=== PATIENT | male | born 1955 | race Caucasian/White ===

== ENCOUNTER 2020-09-24 12:03 | Outpatient (CLI) | payer BC, MEDICARE, SELFPAY ==
--- NOTE | ~2020-09-24 | XR_ITS ---
EXAMINATION: XR chest 2V EXAM DATE: 09/24/2020 12:31 INDICATION: Chest pressure. TECHNIQUE: Frontal and lateral projections of the chest obtained and reviewed. There is no prior melanie dy for comparison. FINDINGS: The lungs are clear. There are no pleural effusions. The cardiomediastinal silhouette is within normal limits. There is no pneumothorax suspected. The bones and soft tissues are unremarkab le. IMPRESSION: No acute cardiopulmonary findings. Reviewed, dictated and finalized at location B. OGRAPHIC PRESS SCREWMAKER
[2020-09-24 13:42] LABS: Basophils Percent Auto 0.4 % (0.2-1.2); Eosinophils Absolute Auto 0.2 K/mm3 (0-0.3); Eosinophils Percent Auto 2.4 % (0-4.4); Hematocrit 45.4 % (42.0-52.0); Hemoglobin 15.2 g/dL (14.0-18.0); Immature Granulocyte Absolute 0.03 K/mm3 (0.00-0.031); Immature Granulocyte Percent A 0.4 % (0-0.5); Lymphocytes Absolute Auto 2.14 K/mm3 (0.9-3.2); Lymphocytes Percent Auto 28.2 % (18.3-44.2); Mean Corpuscular HGB Conc 33.5 g/dl (32-36); Mean Corpuscular Hemoglobin 29.6 pg (26-34); Mean Corpuscular Volume 88.5 fl (80-100); Mean Platelet Volume 9.8 fl (7.4-10.4); Monocytes Absolute Auto 0.6 K/mm3 (0.1-0.6); Monocytes Percent Auto 7.9 % (2.6-8.5); Neutrophils Absolute Auto 4.6 K/mm3 (1.3-6.7); Neutrophils Percent Auto 60.7 % (45.5-73.1); Platelet Count Result 228 k/mm3 (150-375); Red Blood Count 5.13 M/mm3 (4.6-6.20); Red Cell Distribution Width 13.2 % (11.5-14.5); White Blood Count 7.6 K/mm3 (4.5-10.0)
[2020-09-24 13:58] LABS: Alanine Aminotransferase 34 U/L (4-50); Albumin Level 4.7 g/dL (3.5-5.1); Alkaline Phosphatase 65 U/L (38-126); Anion Gap 10 mmol/L (8-16); Aspartate Amino Transferase 34 U/L (17-59); Bilirubin,Total 0.8 mg/dL (0.2-1.3); Blood Urea Nitrogen 10 mg/dL (9-20); Calcium 9.5 mg/dL (8.4-10.2); Carbon Dioxide 29 mmol/L (22-30); Chloride 101 mmol/L (98-107); Estimated Glomerular Filt Rate > 60; Glucose 132 mg/dL (75-110); Potassium 4.2 mmol/L (3.4-5.0); Sodium 140 mmol/L (137-145)
[2020-09-24 14:09] LABS: Troponin I < 0.012 ng/mL (0.000-0.034)
== END 2020-09-24 12:04 | disposition home or self-care (01) ==
LOC: ANHIMG 12:13
PROVIDERS: PCP Internal Medicine; Visit Provider Internal Medicine
DX: R07.89 Other chest pain (principal)
CPT/HCPCS: 36415; 71046; 80053; 84484; 85025; 85380

== ENCOUNTER 2020-10-04 08:13 | Outpatient (CLI) | payer BC, MEDICARE, SELFPAY ==
--- NOTE | 2020-10-04 | EST_ITS ---
Patient Info Name: Bob Godoy Age: 64 years : 1955 Gender: Male Ht: 70 in Wt: 320 lbs BSA: 2.75 m2 Exam Date: 10/04/2020 9:30 AM Exam Location: [facility] Stress Patient Status: Outpatient Admit Date: 10/04/2020 Staff Ordering Physician: WinDolly MD Attending Provider: WinDolly MD Exercise Technologist: Thuy Castillo RDCS Exercise Physician: Chay Varghese DO Exam Type: CA stress aneta w NM Study Info Indications R06.02 - Shortness of breath R07.89 - Other chest pain A regadenoson stress test was performed. Summary 1. 1. Negative lexiscan stress test for ischemic ST changes by ECG criteria. 2. 2. Stable hemodynamics throughout the test. 3. 3. Nuclear scan to follow and will be reported separately. Please correlate with it. 4. 4. Patient informed of the above results. Protocol: Lexiscan Stress ECG Details Stage: REST Duration (min): 7 min : 4 sec HR (bpm): 77 SBP (mmHg): 114 DBP (mmHg): 72 Stage: REST Duration (min): 11 min : 3 sec HR (bpm): 76 SBP (mmHg): 114 DBP (mmHg): 72 Stage: STAGE 1 Duration (min): 1 min : 0 sec HR (bpm): 91 SBP (mmHg): 115 DBP (mmHg): 71 Stage: RECOVERY Duration (min): 1 min : 0 sec HR (bpm): 94 SBP (mmHg): 110 DBP (mmHg): 68 Stage: RECOVERY Duration (min): 2 min : 0 sec HR (bpm): 90 SBP (mmHg): 110 DBP (mmHg): 68 Stage: RECOVERY Duration (min): 3 min : 0 sec HR (bpm): 89 SBP (mmHg): 113 DBP (mmHg): 65 Stage: RECOVERY Duration (min): 3 min : 11 sec HR (bpm): 89 SBP (mmHg): 113 DBP (mmHg): 65 Rest HR: 76 bpm Peak HR: 98 bpm Rest Sys BP: 114 mmHg Peak Sys BP: 115 mmHg Max Pred HR: 158 bpm % Max Pred HR: 62 % Target HR: 134 bpm Max RPP: 11,270 bpm*mmHg Termination Reason: Completed protocol Cardiac Symptoms: Shortness of breath Total Time: 1 min : 0 sec Rest Wang BP: 72 mmHg Peak Wang BP: 71 mmHg Total Dose: 0.4 mg Resting ECG Sinus rhythm. Stress ECG No ST changes. Arrhythmias None. Report Signatures
--- NOTE | ~2020-10-04 | NM_ITS ---
EXAMINATION: NM aneta stress w perfusion DATE: 10/04/2020 11:03 INDICATION: Chest pressure. TECHNIQUE: Rest images were obtained following intravenous administration of 9.6 mCi Tc99m tetrofosmi n (Myoview). The patient was infused intravenously with Lexiscan (regadenoson). Then, 30 mCi Tc99m te trofosmin (Myoview) was administered intravenously, and stress images were obtained. Data was reconst ructed into short axis and horizontal and vertical long axis SPECT images. Gated SPECT images were al so obtained. COMPARISON: None. FINDINGS: There is no definite reversible or fixed perfusion abnormality to suggest ischemia or infar ction. There is no segmental wall motion abnormality. Left ventricular ejection fraction measures 6 8%. IMPRESSION: 1. No definite ischemia or infarct. 2. Normal left ventricular ejection fraction measuring 68%. Reviewed, dictated and finalized at location B. ICAL LABORATORY ASSISTANT
== END 2020-10-04 08:14 | disposition home or self-care (01) ==
LOC: ANHCARD 08:15
PROVIDERS: PCP Internal Medicine; Visit Provider Internal Medicine
DX: R07.89 Other chest pain (principal); E11.9 Type 2 diabetes mellitus without complications
CPT/HCPCS: 78452; 93017; A9502; J2785

== ENCOUNTER 2020-11-08 13:20 | Outpatient (CLI) | payer BC, MEDICARE, SELFPAY ==
--- NOTE | 2020-11-08 | ECHO_ITS ---
Patient Info Name: Bob Godoy Age: 64 years : 1955 Gender: Male Ht: 72 in Wt: 320 lbs BSA: 2.78 m2 HR: 82 bpm BP: 124 / 77 mmHg Heart Rhythm: Sinus Rhythm Technical Quality: Fair Exam Date: 11/08/2020 2:39 PM Exam Location: [facility] Patient Status: Outpatient Admit Date: 11/08/2020 Staff Ordering Physician: JustusDolly MD Picking Supervisor: Bronwyn Beverly RDCS Attending Provider: JustusDolly MD Referring Physician: Justus ISAAC; Exam Type: CA echo doppler color flow Study Info Indications R06.02 - Shortness of breath Complete two-dimensional, color flow and Doppler transthoracic echocardiogram is performed. Summary 1. Complete two-dimensional, color flow and Doppler transthoracic echocardiogram is performed. 2. Left ventricular systolic function is normal, estimated at >70%. 3. There is mildly increased left ventricular wall thickness. 4. The left ventricular diastolic function is grade I diastolic dysfunction. 5. Left atrial chamber dimension is mildly enlarged. 6. There is trace mitral valve regurgitation. 7. There is no aortic valve stenosis. 8. There is trace tricuspid valve regurgitation. 9. No pulmonary hypertension, estimated pulmonary arterial systolic pressure is 23 mmHg. 10. There is trivial pericardial effusion. 11. The pericardium appears epicardial fat pad. 12. Normal inferior vena cava with >50% collapse upon inspiration consistent with normal right atrial pressure, 5 mmHg. Left Ventricle Left ventricular chamber dimension is normal. Left ventricular systolic function is normal, estimated at >70%. There is mildly increased left ventricular wall thickness. The left ventricular diastolic function is grade I diastolic dysfunction. Right Ventricle Right ventricular chamber dimension is normal. Right ventricular systolic function is normal. Left Atria Left atrial chamber dimension is mildly enlarged. Right Atria Right atrial chamber dimension is normal. Aortic Valve The aortic valve is trileaflet. There is no aortic valve stenosis. There is no aortic valve regurgitation. Pulmonic Valve The pulmonic valve is not well visualized. There is trace pulmonic regurgitation. Mitral Valve The mitral valve has normal leaflets. There is trace mitral valve regurgitation. The mitral valve annulus is mildly calcified. Tricuspid Valve The tricuspid valve leaflets are normal. There is trace tricuspid valve regurgitation. No pulmonary hypertension, estimated pulmonary arterial systolic pressure is 23 mmHg. Pericardium/Pleural The pericardium appears epicardial fat pad. There is trivial pericardial effusion. Inferior Vena Cava Normal inferior vena cava with >50% collapse upon inspiration consistent with normal right atrial pressure, 5 mmHg. Aorta The aortic root size at the sinus of Valsalva is normal. There is mild aortic atherosclerosis. Left Ventricular Outflow Tract Name Value Normal LVOT 2D LVOT Diameter 2.2 cm LVOT Doppler LVOT Peak Gradient 4 mmHg LVOT Mean Gradient 2 mmHg
== END 2020-11-08 13:21 | disposition home or self-care (01) ==
PROVIDERS: PCP Internal Medicine; Visit Provider Internal Medicine
DX: R06.02 Shortness of breath (principal)
CPT/HCPCS: 93306

== ENCOUNTER 2020-11-19 07:46 | Outpatient (CLI) | payer BC, MEDICARE, SELFPAY ==
[2020-11-19 08:14] LABS: Alveolar/Arterial O2 Gradient 25.4 mmHg; Base Excess ABG -0.9 mEq/l (+/-2.0); Fractional Inspired Oxygen 21 %; HCO3 ABG 23.4 mEq/l (22.0-26.0); Modified Allen's Test Pass; Oxygen Content ABG 20.4 %vol (16.0-22.0); Oxygen Saturation ABG 95.9 % (95.0-100.0); Oxyhemoglobin 94.7 % THb (90.0-100.0); PCO2 ABG 37.7 mmHg (35.0-45.0); PO2 ABG 79.2 mmHg (80.0-100.0); PO2 FiO2 Ratio Arterial Blood 3.77 %; Site Drawn LEFT RADIAL; Total Hemoglobin 15.3 g/dL (12.0-18.0)
[2020-11-19 08:15] LABS: Device ROOM AIR
== END 2020-11-19 07:47 | disposition home or self-care (01) ==
PROVIDERS: PCP Internal Medicine; Visit Provider Internal Medicine
DX: R06.02 Shortness of breath (principal); G47.33 Obstructive sleep apnea (adult) (pediatric)
CPT/HCPCS: 36600; 82805

== ENCOUNTER 2021-04-02 07:06 | Outpatient (CLI) | payer BC, MEDICARE, SELFPAY ==
--- NOTE | ~2021-04-02 | CT_ITS ---
EXAMINATION: CT abdomen pelvis w con DATE: 04/02/2021 08:12 INDICATION: Left groin pain with lifting. TECHNIQUE: Computed tomography (CT) of the abdomen and pelvis was performed without intravenous contr ast. Automated exposure control and iterative reconstruction technique were employed. Exam dose: 176 1.09 mGy-cm total exam DLP. COMPARISON: None. FINDINGS: The lung bases are clear of infiltrate or consolidation. Heart size is normal. Coronary art jigna calcifications. No pericardial or pleural effusion. Status post cholecystectomy. The liver, bile ducts, spleen, pancreas and pancreatic duct appear normal. 1.7 cm right adrenal mass, likely an adrenal adenoma if there is no history of cancer. The left adrenal gland is normal. No renal mass lesion or urinary tract calculus or hydroureteronephrosis is detected. The urinary blad olivier, prostate gland and seminal vesicles are unremarkable. There is atherosclerotic calcification of the abdominal aorta but no aneurysm. No intraperitoneal or retroperitoneal or pelvic mass lesion or adenopathy or ascites is detected. 3 cm duodenal diverticulum Normal appendix. There is diverticulosis of the left colon; no CT evidence for diverticulitis. No inguinal hernia. No suspicious osteolytic or osteoblastic lesions. IMPRESSION: No fat-containing inguinal hernia 1.7 cm right adrenal probable adenoma Status post cholecystectomy Diverticulosis of the left colon; no CT evidence of diverticulitis Reviewed, dictated and finalized at Location A. Reviewed, dictated and finalized at location A.
[2021-04-02 09:14] LABS: Estimated Glomerular Filt Rate > 60
== END 2021-04-02 07:07 | disposition home or self-care (01) ==
PROVIDERS: PCP Internal Medicine; Visit Provider Internal Medicine
DX: R10.32 Left lower quadrant pain (principal); Z90.49 Acquired absence of other specified parts of digestive tract; K57.30 Diverticulosis of large intestine without perforation or abscess without bleeding
CPT/HCPCS: 74177; Q9967

== ENCOUNTER 2021-06-20 08:46 | Outpatient (CLI) | payer BC, MEDICARE, SELFPAY ==
[2021-06-20 09:48] LABS: Alanine Aminotransferase 46 U/L (4-50); Alkaline Phosphatase 74 U/L (38-126); Anion Gap 12 mmol/L (8-16); Aspartate Amino Transferase 42 U/L (17-59); Bilirubin,Total 0.7 mg/dL (0.2-1.3); Blood Urea Nitrogen 11 mg/dL (9-20); Calcium 9.4 mg/dL (8.4-10.2); Carbon Dioxide 26 mmol/L (22-30); Chloride 100 mmol/L (98-107); Cholesterol 129 mg/dL (0-200); Estimated Glomerular Filt Rate > 60; Glucose 209 mg/dL (65-110); HDL Direct 26 mg/dL; Potassium 4.5 mmol/L (3.4-5.0); Sodium 138 mmol/L (137-145); Triglycerides 362 mg/dL (<150)
[2021-06-20 09:59] LABS: LDL Cholesterol Direct 48 mg/dL
[2021-06-20 10:22] LABS: MALB Creatinine Ratio < 7.1 mg/g (0-30); Microalbumin Urine Random < 6.0 mg/L (0-16.7)
[2021-06-20 10:43] LABS: Hemoglobin A1C 8.7 % (<5.7)
[2021-06-24 11:56] LABS: DHEA-Sulfate 49 mcg/dL (24-244)
[2021-06-28 11:14] LABS: Renin 17.93 ng/mL/h (0.25-5.82)
== END 2021-06-20 08:47 | disposition home or self-care (01) ==
LOC: ANHLAB 08:54
PROVIDERS: PCP Internal Medicine; Visit Provider Internal Medicine
DX: E27.8 Other specified disorders of adrenal gland (principal); E11.9 Type 2 diabetes mellitus without complications; E78.5 Hyperlipidemia, unspecified
CPT/HCPCS: 36415; 80053; 80061; 82043; 82088; 82627; 83036; 84244

== ENCOUNTER 2021-06-26 08:34 | Outpatient (CLI) | payer BC, MEDICARE, SELFPAY ==
[2021-06-29 20:58] LABS: Metanephrine, Total Urine 171 mcg/24 h (224-832); Metanephrine, Urine 38 mcg/24 h (90-315); Normetanephrine, Urine 133 mcg/24 h (122-676)
[2021-07-01 16:48] LABS: Calculated Total (E+NE) 22 mcg/24 h (26-121); Dopamine, 24hr Urine 83 mcg/24 h (52-480); Norepinephrine, 24hr Urine 22 mcg/24 h (15-100)
[2021-07-02 21:31] LABS: Cortisol, Saliva 0.16 mcg/dL
[2021-07-04 15:52] LABS: Cortisol, Saliva 0.18 mcg/dL
== END 2021-06-26 08:35 | disposition home or self-care (01) ==
LOC: ANHLAB 08:39
PROVIDERS: PCP Internal Medicine; Visit Provider Internal Medicine
DX: E27.8 Other specified disorders of adrenal gland (principal); E11.9 Type 2 diabetes mellitus without complications; E78.5 Hyperlipidemia, unspecified
CPT/HCPCS: 82384; 82530; 83835

== ENCOUNTER 2021-08-19 10:20 | Outpatient (CLI) | payer BC, MEDICARE, SELFPAY | END 2021-08-19 10:21 | disposition home or self-care (01) | LOC: CHSIMG 10:25 | PROVIDERS: PCP Internal Medicine; Visit Provider Podiatrist | DX: M79.672 Pain in left foot (principal); M25.572 Pain in left ankle and joints of left foot; M25.472 Effusion, left ankle | CPT/HCPCS: 73610; 73630 ==

== ENCOUNTER 2024-11-02 00:33 | Day surgery (SDC) | payer MEDICARE, OTHER, SELFPAY ==
[2024-10-14 14:37] VITALS: BMI 40.6
--- OUTSIDE RECORDS SUMMARY | 2024-11-02 00:36 | XMS_ITS | Encounter Summary ---
Author Organization [facility] Healthcare Address [address] [place] [address] Care Team Providers Care Gathering Machine Feeder Name Role Phone Dolly Walden MD Primary Care Provider [phone] Cj Epstein MD Unavailable Kye Jerome DPM Unavailable [phone] Encounter Details Date Type Department Care Team (Late st Contact Info) Description 07/23/2022 Telephone [facility] [address] [place] [id number] Aixa Rivera, Social History Tobacco Use Types Packs/Day Years Used Date Smoking Tobacco: Never Smokeless Tobacco: Never Alcohol Use Standard Drinks/Week Comments Yes 0 (1 standard drink = 0.6 oz pur e alcohol) Once in a while AUDIT-C Answer Date Recorded Q1: How often do you have a drink containing alc ohol? 2-3 times a week 03/19/2022 Q2: How many drinks containi ng alcohol do you have on a typical day when you are drinking? 3 or 4 03/19/2022 Q3: How often do you have si x or more drinks on one occasion? 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 Gender Identity Not on file Sexual Orientation Not on file documented as of this encounter Plan of Treatment Not on file documented as of this encounter Visit Diagnoses Not on filedocumented in this encounter Care Teams Gathering Machine Feeder Relationship Specialty Start Date End Date Dolly Walden MD [address] [place] [address] PCP - General 11/04/18 Cj Epstein MD [address] [facility] [place] [address] Consulting Physician General Surgery 03/21/22 Kye Jerome DPM [address] [place] [address] Consulting Physician Orthopedic Surgery 12/05/22 documented as of this encounter
--- OUTSIDE RECORDS SUMMARY | 2024-11-02 00:37 | XMS_ITS | Clinical Summary ---
Author Organization [facility] Address [address] [facility] [place] [address] Care Team Providers Care Short Filler Bunch Machine Operator Name Role Phone Denzel Dalton MD Unavailable [phone] Lionel Faith MD Unavailable [phone] Dolly Walden MD Primary Care Provider [phone] Keisha Boone APRN-JOCKEY VALET Unavailable [phone] Source Comments [facility],non-owned Affiliates and Associated Physician Practices is amultiple site organization consisting of ambulatory clinics and hospital sitesin [place], [place], [place] and [place]. This disclosure is being madepursuant to the Care Everywhere program and may not contain all information available regarding this patient. Last updated 18.[facility] Allergies Active Allergy Reactions Criticality Noted Date Comments Bupropion Nausea and/or Vomiting Low 07/10/2021 Naltrexone Nausea and/or Vomiting Low 07/10/2021 Penicillins Rash Medium 01/31/2013 Medications * Be aware that medications may not be up to date on this document. Alwaysverify current medications with the patient. Medication Sig Dispensed Refills Start Date End Date Status Rosuvastatin Calcium (CRESTOR PO)Indications:Thoracic or lumbosacral neuritis or radiculitis, unspecified,Lumbosacral spondylosis without myelopathy,Spinal stenosis, lumbar region, without neurogenic claudication Take 25 mg by mouth once daily Active METFORMIN HCL POIndications:Thoracic or lumbosacral neuritis or radiculitis, unspecified,Lumbosacral spondylosis without myelopathy,Spinal stenosis, lumbar region, without neurogenic claudication Take 1,000 mg by mouth 2 times daily Active meloxicam (Mobic) 15 MG tablet Take 1 (one) tablet by mouth once daily Active alendronate (Fosamax) 70 MG tablet TAKE ONE TABLET BY MOUTH WEEKLY ON AN EMPTY STOMACH. REMAIN UPRIGHT FOR AT LEAST 30 MINUTS 11/17/2021 Active aspirin EC (Ecotrin) 81 MG tablet Take 1 (one) tablet by mouth once daily Active pantoprazole EC (Protonix) 40 MG tablet Take 1 (one) tablet by mouth once daily 12/16/2021 Active RIFAMPIN IV Not sure of dose given OD in his chest port Active empagliflozin (Jardiance) 10 MG tablet Take 1 (one) tablet by mouth once daily Active Cholecalciferol 25 MCG (1000 UT) Take 2 (two) tablets by mouth once daily Active vitamin E (Tocopheryl) 1000 UNIT capsule Take 1 (one) capsule by mouth once daily Active Active Problems Problem Noted Date Diagnosed Date Osteoarthrosis involving lower leg 01/31/2013 Overview (12/08/2015): 2015 IMO Updt Knee 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 Never 06/19/2022 Q2: How many drinks containi ng alcohol do you have on a typical day when you are drinking? Patient does not drink Q3: How often do you have si x or more drinks on one occasion? Never 06/19/2022 Sex and Gender Information Value Date Recorded Sex Assigned at Not on file Gender Identity Not on file Sexual Orientation Not on file Last Filed Vital Signs Vital Sign Reading Time Taken Comments Blood Pressure 141/78 04/22/2023 11:18 AM CDT Pulse 54 04/22/2023 11:18 AM CDT Temperature 36.1 C (97 F) 04/22/2023 11:18 AM CDT Respiratory Rate 16 04/22/2023 11:18 AM CDT Oxygen Saturation 97% 04/22/2023 11:18 AM CDT Inhaled Oxygen Concentration - - Weight 118.4 kg (261 lb) 04/22/2023 7:40 AM CDT Height 177.8 cm (5' 10 ) 04/22/2023 7:40 AM CDT Body Mass Index 37.45 04/22/2023 7:40 AM CDT Plan of Treatment Health Maintenance Due Date Last Done Comments COLOGUARD (AGES 45-75) - COL ON CA SCREENING 1955 COLON MONITORING 1955 COLONOSCOPY - COLON CA SCREENING 1957 CT COLONOGRAPHY - COLON CA SCREENING 1955 Colorectal Cancer Screening 1955 FIT - COLON CA SCREENING 1955 FLEX SIG - COLON CA SCREENING 1955 MEDICARE AWV 12 MONTHS 1955 HEPATITIS C SCREENING 12/08/1975 DTAP/TDAP/TD VACCINES (1 - Tdap) 1976 PNEUMOCOCCAL VACCINE 50+ (1 of 1 - PCV) 12/13/2007 ZOSTER VACCINE (1 of 2) 12/13/2007 Respiratory Syncytial Virus (RSV) Vaccine Pt: or over 60 yrs (1 - Risk 60-74 years 1-dose series) 2017 COVID-19 VACCINE (2 - 2023-2 5 season) 2024 10/24/2020 INFLUENZA VACCINE (#1) 2024 06/01/2020 DEPRESSION SCREENING 09/14/2024 HEPATITIS B VACCINE Aged Out No longe r eligible based on patient's age to complete this topic HIB VACCINE Aged Out No longer eligi ble based on patient's age to complete this topic HPV VACCINE Aged Out No longer eligi ble based on patient's age to complete this topic MENINGOCOCCAL (Group B) VACCINE Aged Out No longer eligible based on patient's age to complete this topic MENINGOCOCCAL VACCINE Aged Out No leonie [place] eligible based on patient's age to complete this topic Medical Devices Implanted Type Area Toddler Teacher Device Identifier Shelf Expiration Date Model / Serial / Lot Kit Bngf c Apr Inj Implanted:Qty: 1 on 06/19/2022 by Mitchell Salazar DPM at [facility] Left: Foot [employer] [id number] / / [id number] Graft Bone Canc 4-9.5mm 15cc Frzdr Chp Implanted:Qty: 1 on 06/19/2022 by Mitchell Salazar DPM at [facility] Left: Foot [employer] 12/10/2026 [id number] / / [id number] Pin Fx 1.1mm Ortholoc 3di Sm Temp Disp Implanted:Qty: 2 on 06/19/2022 by Mitchell Salazar DPM at [facility] Explanted:Qty: 1 on 02/25/2023 at [facility] Left: Foot [employer] [id number] / / Pro-Dense Injectable Calcium Sulfate, Calcium Phosphate Implanted:Qty: 1 on 02/25/2023 by Vadim Salazar DPM at [facility] Left: Foot [employer] 12/03/2026 [id number] / / [id number] Explanted Type Area Toddler Teacher Device Identifier Shelf Expiration Date Model / Serial / Lot Mdco Plate Implanted:Qty: 1 on 06/19/2022 by Mitchell Salazar DPM at [facility] Explanted:Qty: 1 on 02/25/2023 by Vadim Salazar DPM at [facility] Left: Foot [id number] / / Screw 3.5mm 18mm Ft Slf-Tap Lck Pa On Implanted:Qty: 2 on 06/19/2022 by Mitchell Salazar DPM at [facility] Explanted:Qty: 2 on 02/25/2023 by Vadim Salazar DPM at [facility] Left: Foot [employer] [id number] / / Screw 3.5mm 22mm Ft Slf-Tap Lck Pa On Implanted:Qty: 2 on 06/19/2022 by Mitchell Salazar DPM at [facility] Explanted:Qty: 2 on 02/25/2023 by Vadim Salazar DPM at [facility] Left: Foot [employer] [id number] / / Wedge Apr Thk8mm 22mm 22mm Biofm Pizarro Implanted:Qty: 1 on 06/19/2022 by Mitchell Salazar DPM at [facility] Explanted:Qty: 1 on 02/25/2023 by Vadim Salazar DPM at [facility] Left: Foot [employer] 04/21/2028 [id number] / / [id number] Care Teams Short Filler Bunch Machine Operator Relationship Specialty Start Date End Date Dolly Walden MD [address] [place] [address] PCP - General Internal Medicine 06/19/22 [place] [address] [place] [address] Orthopedic Surgery 01/31/13 [place] [address] [place] [address] Orthopedic Surgery 03/14/13 Keisha Boone, REDUCTION FURNACE OPERATOR HELPER-JOCKEY VALET [address] [phone] Nurse Practitioner 04/22/23
--- OUTSIDE RECORDS SUMMARY | 2024-11-02 00:37 | XMS_ITS | Clinical Summary ---
Author Organization [facility] Address [address] [place] [address] Care Team Providers Care Accounting Practice Manager Name Role Phone Dolly Walden MD Primary Care Provider [phone] Cj Epstein MD Unavailable Kye Jerome DPM Unavailable [phone] Allergies Active Allergy Reactions Criticality Noted Date Comments Bupropion Nausea & Vomiting Low 07/10/2021 Naltrexone Nausea only Low 07/10/2021 Penicillins Swelling High 01/31/2013 as a child Medications cyanocobalamin, vitamin B-12, 1,000 mcg tablet extended release take 1 tab po every other day. 0 0 3 Active vitamin E (AQUASOL E) 1,000 unit capsuleIndicatio ns:stop 5 days before surgery Take 1 capsule (1,000 Units total) by mouth daily Active aspirin 81 mg enteric coated tablet Take 1 tablet (81 mg total) by mouth daily Active gabapentin (NEURONTIN) 400 mg capsule Take 1 capsule (400 mg total) by mouth 4 (four) times a day 2 Active betamethasone dipropionate (DIPROLENE) 0.05 % ointment 2 Active blood glucose diagnostic (Contour Next Test Strips) strip Use to test blood glucose 3 times daily, DX E11.65, Z79.4 300 strip 3 2 Active cholecalciferol (VITAMIN D-3) 25 mcg (1,000 unit) tablet Take 2 tablets (2,000 Units total) by mouth daily Active meloxicam (MOBIC) 15 mg tablet Take 1 tablet (15 mg total) by mouth daily Active alendronate (FOSAMAX) 70 mg tablet TAKE ONE TABLET BY MOUTH WEEKLY ON AN EMPTY STOMACH. REMAIN UPRIGHT FOR AT LEAST 30 MINUTES 12 tablet [address] (PROTONIX) 40 mg EC tablet Take 1 tablet (40 mg total) by mouth every morning 3 Active metFORMIN XR (GLUCOPHAGE XR) 500 mg 24 hr tablet TAKE 2 TABLETS(1000 MG) BY MOUTH TWICE DAILY 360 tablet 3 3 Active empagliflozin (Jardiance) 10 mg tablet TAKE 1 TABLET(10 MG) BY MOUTH DAILY 90 tablet 1 3 Active Additional Information Patient not taking.Reported on 09/29/2024 rosuvastatin (CRESTOR) 40 mg tablet TAKE 1 TABLET(40 MG) BY MOUTH DAILY 90 tablet 3 3 Active glimepiride (AMARYL) 1 mg tablet TAKE 1 TABLET BY MOUTH DAILY WITH BREAKFAST OR THE FIRST MAIN MEAL OF THE DAY. REPLACES JARDIANCE 4 Active icosapent ethyL (VASCEPA) 1 gram capsule Take 2 capsules (2 g total) by mouth 2 (two) times a day 120 capsule 11 4 Active sildenafiL (VIAGRA) 50 mg tablet Take 1 tablet (50 mg total) by mouth as needed 4 Active topiramate (TOPAMAX) 50 mg tablet Take 1 tablet (50 mg total) by mouth 2 (two) times a day 4 Active Active Problems Problem Noted Date Diagnosed Date Acute osteomyelitis of left ankle or foot 2022 MRSA bacteremia 02/19/2023 Cellulitis of left foot 02/10/2023 Status post sleeve gastrectomy 01/20/2023 Assessment & Plan (01/20/2023 10:32 AM CDT): Patient is doing quite well postoperatively. He will continue small frequent meals. Exercise as tolerates. Continue calcium, vitamin-D and multivitamin. We will see him back in 1 year. He will call sooner with any changes, questions or concerns Acquired hallux interphalangeus of right foot Hallux abductovalgus, acquired, right 12/05/2022 Orthostatic hypotension 08/21/2022 Primary hypertension 08/20/2022 History of gout 01/15/2021 History of sleep apnea 01/15/2021 Assessment & Plan (11/07/2021 8:51 AM MANAGER OF MEDICAL): Continue BiPAP as needed. With the weight loss after surgery this hopefully will no longer be needed. Arthritis of left subtalar joint 12/19/2020 Posterior tibial tendon dysfunction, left 2020 Peroneal tendinitis, left 10/12/2020 Plantar fasciitis 10/12/2020 Martinez's esophagus with dysplasia 06/27/2020 Overview (06/27/2020): Added automatically from request for surgery [id number] Age-related osteoporosis wit hout current pathological fracture 11/10/2019 Abnormal results of cardiovascular function stud ies 12/22/2018 Overview (12/22/2018): Added automatically from request for surgery [id number] Fatty liver 11/11/2017 Assessment & Plan (11/11/2017 10:37 AM MANAGER OF MEDICAL): Most likely elevated lft's due to ahn but will complete work up for other chronic liver conditions (ferritin in the past 450's- get HFE gene) Start vit E 800 units Encourage to lose weight (at least 5%) and eat healthier He is looking forward to joining the gym again Elevated transaminase level 11/11/2017 Assessment & Plan (11/11/2017 10:40 AM MANAGER OF MEDICAL): rtc 8-10 months Aftercare following left knee joint replacement surgery 06/23/2017 Acquired pes planovalgus of left foot 03/05/2017 Trochanteric bursitis of left hip 03/05/2017 Single-level cervical spondylosis without myelop athy 12/09/2016 Overview (02/06/2017): Single-level cervical spondylosis without myelopathy Benign hypertension 01/29/2016 Overview (12/20/2016): BENIGN HYPERTENSION Morbid obesity 01/28/2014 Overview (12/19/2016): MORBID OBESITY Assessment & Plan (07/29/2022 10:12 AM MANAGER OF MEDICAL): Continue activity as tolerates but patient is limited by the left foot. We will continue to encourage him to attend the monthly support groups and see the processing analyst. We will see him back in 6 months Assessment & Plan (12/24/2021 9:33 AM CDT): The patient is set to have an upcoming foot surgery with podiatry. I have cautioned him that my only concern is that this will make him more sedentary. He really will need to work on watching oral intake to ensure no significant weight gain during that process. We have given him the preoperative diet handout as this is month 6. The patient also was seen by GI in 2019 where he had an EGD for screening for Martinez's esophagus. This is around the time that this should be repeated anyway. This will help us in preparation for surgery as well. I will discuss with GI having them repeat this prior to surgery. The patient is in understanding. Assessment & Plan (10/01/2021 10:50 AM MANAGER OF MEDICAL): We have stressed the importance of trying to stick to a more regimented plan going forward. These fluctuations will not be Conducive to long-term success at surgery. He has yet to see the dietitian which hopefully is coming up in October which can offer him some further guidance. We will see him back at that time to reassess. Assessment & Plan (09/03/2021 10:28 AM MANAGER OF MEDICAL): I have stressed the importance of trying to stick with 1 Plan for the month coming forward. It seems like late night eating is 1 of the biggest issues. We have discussed how important it is to stop eating after dinner. His other issue seems to be portion control size to have discussed some options for this going forward as well. He has yet to see the dietitian which I hope will also help with a good plan for this going forward. We will see him back next month. Assessment & Plan (08/01/2021 2:20 PM MANAGER OF MEDICAL): Given their past success the patient would be a good candidate for weight loss surgery. We have gone over options such as the bypass and sleeve gastrectomy. We have also discussed risks and benefits such as blood clots, staple line leak as well as new or worsening reflux symptoms. Given his reflux I discussed the bypass may be a better option. He does state that he is not tried being off of his medication for some time. He seems somewhat hesitant to the bypass as he has had a family member who from this. If he was able to lose weight during the process and come off of his PPI I would be more inclined to consider the sleeve. He is going to discuss this with his and will readdress this at next visit. We have gone over small frequent meals shooting for a goal calorie intake of around 1600 spread throughout 4-5 meals. We have discussed not eating late at night. We have discussed cardiovascular exercise. Greater than 15 minutes was spent in counseling the patient on diet and exercise with regards to her morbid obesity. Type 2 diabetes mellitus wit h hyperglycemia, without long-term current use of insulin ([facility]) 01/28/2014 Overview (12/20/2016): DMII WO CMP UNCNTRLD Diabetic neuropathy 01/28/2014 Overview (12/19/2016): NEUROPATHY IN DIABETES Pure hypercholesterolemia 01/28/2014 Overview (12/19/2016): PURE HYPERCHOLESTEROLEM Assessment & Plan (09/03/2021 10:28 AM MANAGER OF MEDICAL): Continue current statin Assessment & Plan (08/01/2021 2:19 PM MANAGER OF MEDICAL): Continue current statin therapy Lower limb joint arthritis 01/28/2014 Overview (12/19/2016): OSTEOARTHROS NOS-L/LEG Gastroesophageal reflux disease 01/28/2014 Overview (12/19/2016): ESOPHAGEAL REFLUX Assessment & Plan (11/11/2017 10:37 AM MANAGER OF MEDICAL): On ppi daily, asymptomatic Hypertension 2013 Overview (12/19/2016): Hypertension Assessment & Plan (08/01/2021 2:19 PM MANAGER OF MEDICAL): Continue current medical regimen Steatosis of liver 10/12/2013 Overview (12/19/2016): Fatty liver Martinez's esophagus 09/01/2013 Overview (12/19/2016): Barretts esophagus Assessment & Plan (11/11/2017 10:37 AM MANAGER OF MEDICAL): egd recently without dysplasia, egd due 2020 Obstructive sleep apnea syndrome 09/01/2013 Overview (12/19/2016): HOWARD on CPAP Neuritis or radiculitis due to rupture of lumbar intervertebral disc 06/03/2013 Overview (12/19/2016): Lumbar radiculitis Stenosis of lateral recess of lumbar spine 06/03 Overview (12/19/2016): Stenosis of lateral recess of lumbar spine Osteoarthritis 01/31/2013 Overview (04/02/2017): Overview: 2015 O Updt Cholelithiasis 06/11/2012 Overview (12/19/2016): Cholelithiases Carpal tunnel syndrome 12/09/2011 Overview (12/19/2016): Carpal tunnel syndrome, bilateral Adiposity 11/12/2011 Overview (12/19/2016): Obesity Hypersomnia with sleep apnea 11/12/2011 Overview (12/19/2016): Hypersomnia with sleep apnea Ulnar neuropathy 11/12/2011 Overview (12/19/2016): Ulnar nerve neuropathy Stenosis of carotid artery 11/12/2011 Overview (12/20/2016): Carotid stenosis Resolved Problems Problem Noted Date Diagnosed Date Resolved Date BMI 45.0-49.9, adult ([facility]) 11/11/2017 07/29/2022 Assessment & Plan (05/08/2022 10:49 AM CDT): Continue small frequent meals. No restrictions at this time. May exercise as tolerates. Continue follow up with the dietitian. We have encouraged him to continue with the monthly support group meetings. We will see him back at 3 months. He will call sooner if anything changes Assessment & Plan (03/27/2022 11:10 AM CDT): Continue to advance diet As laid out in Post bariatric handout. Continue Pepcid. No submerging incisions for another week. No lifting heavier than 20 lb. We will see the patient back at 4 weeks to reassess his progress Assessment & Plan (02/25/2022 10:17 AM CDT): We have stressed the importance of adhering to his diet throughout this. I do not want him going through surgery and then quickly reverting to always and having it fail. We have given him his 2 week preoperative clear diet and gone over the instructions. He is in understanding. Assessment & Plan (01/23/2022 10:13 AM CDT): The patient has done quite well the past few months showing consistent weight loss. His EGD was repeated without any signs of Martinez's on the biopsy. We will now set him up for insurance precertification. We have given him a preoperative diet handout instructions in preparation for surgery. All questions answered. He is in understanding of the plan. Assessment & Plan (11/26/2021 9:44 AM CDT): The patient will continue to work on small frequent meals. Continue exercise regimen although again limited due to some osteoarthritis of the knee. We will see him back next month to reassess. He believes he has had an EGD within the past 1 year which will review. If not performed recently will be to rule out hiatal hernia and test for H pylori. Assessment & Plan (11/07/2021 8:52 AM MANAGER OF MEDICAL): The patient is really going to try and incorporate some of the things he worked with the dietitian about. This has been focused around ensuring having breakfast and increasing protein intake as well as vegetables. He is limited with his mobility given some issues in the lower extremity but will continue to work on exercises the therapist have given him. We will see him back next month to reassess. Assessment & Plan (11/11/2017 10:40 AM MANAGER OF MEDICAL): Encourage to lose weight Encounters Date Type Department Care Team Description 09/30/2024 8:30 AM MANAGER OF MEDICAL Lab [address] [id number] Pure hypercholesterolemia 09/29/2024 10:15 AM MANAGER OF MEDICAL Office Visit [facility] at [address] [place] [address] Vadim East NP Primary hypertension (Primary Dx); Pure hypercholesterolemia; Morbid obesity (HCC); Orthostatic hypotension 09/26/2024 11:20 AM MANAGER OF MEDICAL Lab [address] [address] 08/04/2024 11:10 AM MANAGER OF MEDICAL [address] [phone] from Last 3 Months Immunizations Immunization Administration Dates Next Due Influenza, Quadrivalent, Spl it, Preservative Free, Intramuscular 06/01/2020 Moderna SARS-CoV-2 Monovalent Vaccination (12+ Y RS) 10/24/2020 Pneumococcal Polysaccharide PPV23 08/02/2014, Tdap 08/02/2014 ZOSTER LIVE 07/15/2014 ZOSTER Recombinant 10/03/2019,08/02/2019 Surgical History Surgery Date Site/Laterality Comments OTHER SURGICAL HISTORY Osteoarthritis: arthroscopy OTHER SURGICAL HISTORY leg problem - left: surgical repair OTHER SURGICAL HISTORY 09/14/2009 - 09/13/2010 OA left knee: total knee replacement KNEE ARTHROPLASTY 09/14/2009 - 09/13/2010 left knee replacement.. 2016 KNEE ARTHROPLASTY 09/14/2009 - 09/13/2010 knee replacement ARTHROSCOPIC SURGERY 09/14/2008 - 09/13/2009 arthroscopy KNEE ARTHROSCOPY Right knee arthroscopy OTHER SURGICAL HISTORY 09/14/2011 - 09/13/2012 Carpal tunnel releases OTHER SURGICAL HISTORY 09/14/2009 - 09/13/2010 Left Total knee arthroplasty CHOLECYSTECTOMY 09/14/2011 - 09/13/2012 Lap Cholecystectomy CHOLECYSTECTOMY 09/14/2011 - 09/13/2012 Cholecystectomy CHOLECYSTECTOMY gall bladder removed TONSILLECTOMY Tonsillectomy OTHER SURGICAL HISTORY 09/14/2014 - 09/13/2015 back surgery: Medical Management OTHER SURGICAL HISTORY mild carotid plaque OTHER SURGICAL HISTORY left knee revision FOOT SURGERY 01/15/2021 Left FOOT SURGERY 01/02/2022 Removal of screws SLEEVE GASTROPLASTY 03/19/2022 FOOT RAY RESECTION 03/14/2022 - 04/13/2022 Left TOE SURGERY 12/05/2022 Right Big toe straightened FOOT SURGERY Left I & D FOOT SURGERY 04/22/2023 Medical History Medical History Date Comments Osteoarthritis Osteoarthritis Hx Other Medical leg problem - l eft Hx Other Medical OA left knee Hyperlipidemia Hyperlipidemia Diabetes mellitus (HCC) Diabetes Hypertension Hypertension Hx Other Medical acid reflux dis ease Type 2 diabetes mellitus (HCC) D iabetes type 2 Hx Other Medical obs sleep apnea Hx Other Medical 2010 left TKR-unsucc esssful hx of fracture age 27. hx o Hx Other Medical Dr. Garza/Endocr inologist. Hx Other Medical Dr. Caceres/sleep s pecialist. Hx Other Medical hx of cerebral angiogram with minimal blockage in Hx Other Medical Dr. Bradley/ GI Hx Other Medical lumbar disc dis ease Hx Other Medical Dr. Archer/hari rm. Hx Other Medical 2014 liposuction Hx Other Medical Dr. Angeles/p [facility] surgeon Hypercholesterolemia High Choles terol Hx Other Medical Back pain Gout Gout Hx Other Medical back surgery PONV (postoperative nausea and vomiting) Sleep apnea CPAP it works f or me GERD (gastroesophageal reflux disease) Martinez esophagus Family History Medical History Relation Name Comments Hypertension Brother 2 Hypertension; Other Brother 3 Alive and well; Coronary artery disease Father Argelia nary artery disease; Hypertension Father Hypertension; Stroke Father Stroke; /Stroke ; Cause of : Stroke Coronary artery disease Mother Argelia nary artery disease; /Coronary artery disease; age 78 Heart disease Mother Hypertension Mother Hypertension; Stroke Mother Stroke; Hypertension Other 1 Family history of Hypertension; Stroke Other 2 Family history of Stroke; Heart disease Other 3 Family history of Congenital heart disease; Hypertension Sister Hypertension; Relation Name Status Comments Brother 1 Alive Brother 2 Brother 3 Father (Age 76) Mother Alive Other 1 Other 2 Other 3 Sister Social History Tobacco Use Types Packs/Day Years Used Date Smoking Tobacco: Never Smokeless Tobacco: Never Tobacco Cessation:Counseling Given: Not Answered Alcohol Use Standard Drinks/Week Comments Yes 0 (1 standard drink = 0.6 oz pur e alcohol) Once in a while AUDIT-C Answer Date Recorded Q1: How often do you have a drink containing alc ohol? Monthly or less 02/19/2023 Q2: How many drinks containi ng alcohol do you have on a typical day when you are drinking? 1 or 2 02/19/2023 Q3: How often do you have si x or more drinks on one occasion? Never 02/19/2023 Personal Safety Answer Date Recorded Have you ever been in or are you currently in a harmful physical or emotional relationship or is someone making you feel afraid or unsafe? Denies 02/23/2023 Sex and Gender Information Value Date Recorded Sex Assigned at Not on file Legal Sex Male 12:14 AM MANAGER OF MEDICAL Gender Identity Not on file Sexual Orientation Not on file Obstetrics History Last Filed Vital Signs Vital Sign Reading Time Taken Comments Blood Pressure 122/85 09/29/2024 9:51 AM MANAGER OF MEDICAL Pulse 99 09/29/2024 9:51 AM MANAGER OF MEDICAL Temperature 36.2 C (97.2 F) 05/14/2023 12:21 PM CDT Respiratory Rate 18 09/24/2023 9:56 AM MANAGER OF MEDICAL Oxygen Saturation 98% 04/30/2023 2:03 PM CDT Inhaled Oxygen Concentration - - Weight 136.1 kg (300 lb) 09/29/2024 9:51 AM MANAGER OF MEDICAL Height 177.8 cm (5' 10 ) 09/29/2024 9:51 AM MANAGER OF MEDICAL Body Mass Index 43.05 09/29/2024 9:51 AM MANAGER OF MEDICAL Plan of Treatment Health Maintenance Due Date Last Done Comments Colon Cancer Screening-Colonoscopy 04/07/2011 04/07/2008 Depression Screening 07/27/2018 07/27/2017, 07/03/2017, 04/02/2017, Additional history exists Well Visit 65+ 2022 Dilated Eye Exam 01/08/2024 01/07/2023, , 01/01/2022, Additional history exists Fall Risk Assessment 03/10/2024 03/10/2023, 03/21/20 22 Foot Exam 04/08/2024 04/08/2023, 11/13, 07/29/2022, Additional history exists Covid-19 Vaccine (2023-2 5 season) 2024 01/15/2023, 07/10/2022, 01/07/2022, Additional history exists DTaP/Tdap/Td Vaccine (2 - Td or Tdap) 08/02/2024 08/02/2014 Hemoglobin A1C 02/01/2025 08/04/2024, 03/14, 04/08/2023, Additional history exists Prostate Cancer Screening-PSA 03/28/2025, 07/21/2019, 05/28/2016 Albumin Creatinine Ratio, Urine 08/04/2025 , 06/20/2021 eGFR 09/26/2025 09/26/2024, 07/16, 03/28/2024, Additional history exists Lipid Panel 09/30/2025 09/30/2024, 03/14, 10/16/2023, Additional history exists Colon Cancer Screening-CT Colonography Discontinued 04/07/2008 Colon Cancer Screening-DNA Stool Discontinued 04/07/20 08 Colon Cancer Screening-FIT Discontinued 04/07/2008 Colon Cancer Screening-Sigmoidoscopy Discontinued 04/07/2008 Hepatitis C Screening Completed 11/11/2017 , 09/27/2013, 09/27/2013 Zoster Vaccine Completed 10/03/2019, 07/15, 08/15/2014, Additional history exists Influenza Vaccine Discontinued 07/10/2022, , 06/01/2020, Additional history exists Pneumococcal vaccine 65+ Completed 023, 08/02/2014, 08/01/2014, Additional history exists Medical Devices Implanted Type Area Shot Blast Equipment Operator Device Identifier Shelf Expiration Date Model / Serial / Lot Snyppit Craniomaxillofacial [id number] Macario Asnis 1.2mm 100mm Micro Wire Fixation Nonsterile 3mm - [id number] Implanted:Qty: 1 on 05/27/2019 by Kye Jerome DPM at [facility] Left: Foot Shallowater Craniomaxillofacial [id number] / / 3.8mm Cannulated Countersink Implanted:Qty: 1 on 05/27/2019 by Kye Jerome DPM at [facility] Left: Foot [employer] [id number] / / [employer] [id number] Asnis 3mm 30mm 6mm Self Cut Cannulated Color Coded Low Profile - [id number] Implanted:Qty: 1 on 05/27/2019 by Kye Jerome DPM at [facility] Left: Foot [employer] [id number] / / [employer] [id number] Augment Graft 3cc Bone - [id number] Implanted:Qty: 1 on 01/15/2021 by Johnathon Davis Jr., MD at [facility] Left: Foot [employer] 06/13/2021 [id number] / / [id number] [employer] [id number] Darco Od7.5 Mm L80 Mm L16 Mm Head Screw Bone - [id number] Implanted:Qty: 1 on 01/15/2021 by Johnathon Davis Jr., MD at [facility] Left: Foot [employer] [id number] / / [employer] [id number] Darco 7.5mm 90mm 16mm Head Foot Screw Bone - [id number] Implanted:Qty: 1 on 01/15/2021 by Johnathon Davis Jr., MD at [facility] Left: Foot [employer] [id number] / / [employer] Fuseforce L10 Mm X W10 Mm Hand Staple Bone Sterile 2 Mm Reamer [id number] - [id number] Implanted:Qty: 1 on 12/05/2022 by Kye Jerome DPM at [facility] Right: Foot [employer] [id number] / / [id number] Telles 9 F Dual- Lumen Cv Catheter With Surecuff Tissue Ingrowth Cuff, 54 Cm Tip-To-Cuff Length [id number] Implanted:Qty: 1 on 02/23/2023 by Jun Mcleod MD at [facility] Right: Chest [employer] [id number] 11/11/2025 [id number] / / Description:[facility] lists this item as a supply Explanted Type Area Shot Blast Equipment Operator Device Identifier Shelf Expiration Date Model / Serial / Lot [employer] [id number] Macario 2.5mm Wire Fixation - [id number] Explanted:Qty: 2 on 01/15/2021 at [facility] Left: Foot [employer] [id number] / / Procedures Procedure Name Priority Date/Time Associated Diagnosis Comments LIPID PANEL Routine 09/30/2024 8:37 AM MANAGER OF MEDICAL Pure hypercholesterolemia EGFR Routine 09/26/2024 11:24 AM MANAGER OF MEDICAL BASIC METABOLIC PANEL Routine 09/26/2024 11:24 AM MANAGER OF MEDICAL EGFR Routine 08/04/2024 11:14 AM MANAGER OF MEDICAL COMPREHENSIVE METABOLIC PANEL Routine 08/04/2024 11:14 AM MANAGER OF MEDICAL ALBUMIN CREATININE RATIO, URINE Routine 08/04/2024 11:14 AM MANAGER OF MEDICAL HEMOGLOBIN A1C Routine 08/04/2024 11:14 AM MANAGER OF MEDICAL PSA SCREEN Routine 03/28/2024 7:41 AM CDT DIABETIC EYE EXAM Routine 01/07/2023 DIABETES FOOT EXAM Routine 01/28/2018 HEPATITIS C ANTIBODY Routine 11/11/2017 10:54 AM MANAGER OF MEDICAL COLONOSCOPY Routine 04/07/2008 from Last 3 Months or Most Recently Relevant to Health Maintenance Results * Lipid panel (09/30/2024 8:37 AM MANAGER OF MEDICAL) Cholesterol 123 30 - 199 mg/dL Comment: Interpretive Data Ages < or = 19 years Acceptable: <170 mg/dL Borderline high: 170-199 mg/dL High: >or= 200 mg/dL Ages > or = 20 years Desirable: <200 mg/dL Borderline high: 200-239 mg/dL High: >or= 240 mg/dL Literature References: 1. Expert Panel on Integrated Guidelines for Cardiovascular Health and Risk Reduction in Children and Adolescents. Pediatrics 2011;128:S213 2. NCEP Expert Panel. Circulation 2004;110:227 Current Interpretive Data was last revised on 2018. Triglycerides 143 <=149 mg/dL JAYLIN LION (RENEA) Comment: Interpretive Data Ages < or = 9 years Acceptable: <75 mg/dL Borderline high: 75-99 mg/dL High: >or= 100 mg/dL Ages 10 to 20 years Acceptable: <90 mg/dL Borderline high: 90-129 mg/dL High: >or= 130 mg/dL Ages > or = 20 years Desirable: <150 mg/dL Borderline high: 150-199 mg/dL High: 200-499 mg/dL Very high: >or= 499 mg/dL Literature References: 1. Expert Panel on Integrated Guidelines for Cardiovascular Health and Risk Reduction in Children and Adolescents. Pediatrics 2011;128:S213 2. NCEP Expert Panel. Circulation 2004;110:227 Current Interpretive Data was last revised on 2018. HDL 41 >=40 mg/dL JAYLIN Henriquez (RENEA) Comment: Interpretive Data Ages < or = 19 years Acceptable: >45 mg/dL Borderline low: 40-45 mg/dL Low: <40 mg/dL Ages > or = 20 years Desirable: >or= 60 mg/dL Low: <40 mg/dL Literature References: 1. Expert Panel on Integrated Guidelines for Cardiovascular Health and Risk Reduction in Children and Adolescents. Pediatrics 2011;128:S213 2. NCEP Expert Panel. Circulation 2004;110:227 Current Interpretive Data was last revised on 2018. LDL, calculated 57 <=129 mg/dL JAYLIN LION (RENEA) Comment: Interpretive Data Ages < or = 19 years Acceptable: <110 mg/dL Borderline high: 110-129 mg/dL High: >or= 130 mg/dL Ages > or = 20 years Optimal: <100 mg/dL Near optimal: 100-129 mg/dL Borderline high: 130-159 mg/dL High: >160 mg/dL Calculated using the Moore LDL-C estimating equation. This equation was implemented on 2024. Prior to this date LDL-C was estimated using the Friedewald equation. Literature References: 1. Expert Panel on Integrated Guidelines for Cardiovascular Health and Risk Reduction in Children and Adolescents. Pediatrics 2011;128:S213 2. NCEP Expert Panel. Circulation 2004;110:227 3. Oscar M et al. SHARAD Cardiol. 2019January 12;5(5):540-548. doi: 10.1001/jamacardio.2020.0013 Current Interpretive Data was last revised on 2024. Non-HDL Cholesterol 82 mg/dL JAYLIN LION (LYNDORA) Comment: Interpretive Data Ages < or = 19 years Acceptable: <120 mg/dL Borderline high: 120-144 mg/dL High: >145 mg/dL Ages > or = 20 years When triglycerides are >200 mg/dL, Non-HDL cholesterol is a secondary target of therapy with treatment goals that are 30 mg/dL greater than the LDL cholesterol target. Literature References: 1. Expert Panel on Integrated Guidelines for Cardiovascular Health and Risk Reduction in Children and Adolescents. Pediatrics 2011;128:S213 2. NCEP Expert Panel. Circulation 2004;110:227 Current Interpretive Data was last revised on 2018. Chol/HDL ratio 3 JASWANT LION (RENEA) Blood 09/30/2024 8:37 AM MANAGER OF MEDICAL 09/30/2024 9:08 AM MANAGER OF MEDICAL Kashmir Hall MD LAB BLOOD ORDERABLES Final Resu lt JAYLIN AYAD (LYNDORA) 1 [facility] [place] [address] * eGFR (09/26/2024 11:24 AM MANAGER OF MEDICAL) eGFR >90 >=60 mL/min/1. 73 m2 Comment: Interpretive Data Reference Interval Normal >/= 90 mL/min/1.73m2 Mildly decreased* 60 - 89 mL/min/1.73m2 Mildly to moderately decreased 45 - 59 mL/min/1.73m2 Moderately to severely decreased 30 - 44 mL/min/1.73m2 Severely decreased 15 - 29 mL/min/1.73m2 Kidney Failure < 15 mL/min/1.73m2 *Relative to young adult level Estimated glomerular filtration rate is determined by the 2020 CKD-EPI equation recommended by the National Kidney Foundation (A Unifying Approach to GFR Estimation: Recommendations of the NKF-ASK Task Force on Reassessing the Inclusion of Race in Diagnosing Kidney Disease, JASN 2020). The CKD-EPI equation should not be used for patients with unstable renal function and has not been validated in children and those over 70. Current interpretive data was last reviewed 2021. Blood 09/26/2024 11:2 4 AM MANAGER OF MEDICAL 09/26/2024 11:33 AM MANAGER OF MEDICAL us Dolly Walden MD LAB BLOOD ORDERABLES Final Result [facility] (RENEA) 1 [facility] Department [place] [address] * (ABNORMAL) Basic metabolic panel (09/26/2024 11:24 AM MANAGER OF MEDICAL) Sodium 139 135 - 145 mmol/L Potassium, pl 3.9 3.3 - 4.9 mmol/L [facility] (RENEA) Chloride 106 97 - 110 mmol/L [facility] (RENEA) CO2 22 22 - 32 mmol/L [facility] (RENEA) Anion gap 12 2 - 15 mmol/L [facility] (RENEA) BUN 6 6 - 25 mg/dL [facility] (RENEA) Creatinine 0.68(L) 0.80 - 1.30 mg/dL [facility] (RENEA) Glucose 203(H) 70 - 199 mg/dL [facility] (RENEA) Comment: Interpretive Data Fasting glucose >/= 126 mg/dl is diagnostic for diabetes. Fasting is defined as no caloric intake for at least 8 hours. Fasting glucose between 100 mg/dl to 125 mg/dl is diagnostic of prediabetes. In a patient with classic symptoms of hyperglycemia or hyperglycemic crisis, a random glucose >/= 200 mg/dl is diagnostic for diabetes. In the absence of unequivocal hyperglycemia, results should be confirmed by repeat testing. The classification and Diagnosis of Diabetes Diabetes Care 2021; 46: S19-S40. Current interpretive data was last revised 2022. Calcium 9.9 8.5 - 10.3 mg/dL [facility] (RENEA) Blood 09/26/2024 11:2 4 AM MANAGER OF MEDICAL 09/26/2024 11:33 AM MANAGER OF MEDICAL Dolly Walden MD LAB BLOOD ORDERABLES Final Result Performing Organization Address City/[facility] Co de Phone Number JAYLIN LION RENEA) 1 [facility] Department [place] [address] * eGFR (08/04/2024 11:14 AM MANAGER OF MEDICAL) eGFR >90 >=60 mL/min/1. 73 m2 Comment: Interpretive Data Reference Interval Normal >/= 90 mL/min/1.73m2 Mildly decreased* 60 - 89 mL/min/1.73m2 Mildly to moderately decreased 45 - 59 mL/min/1.73m2 Moderately to severely decreased 30 - 44 mL/min/1.73m2 Severely decreased 15 - 29 mL/min/1.73m2 Kidney Failure < 15 mL/min/1.73m2 *Relative to young adult level Estimated glomerular filtration rate is determined by the 2020 CKD-EPI equation recommended by the National Kidney Foundation (A Unifying Approach to GFR Estimation: Recommendations of the NKF-ASK Task Force on Reassessing the Inclusion of Race in Diagnosing Kidney Disease, JASN 2020). The CKD-EPI equation should not be used for patients with unstable renal function and has not been validated in children and those over 70. Current interpretive data was last reviewed 2021. Blood 08/04/2024 11:1 4 AM MANAGER OF MEDICAL 08/04/2024 11:24 AM MANAGER OF MEDICAL us Dolly Walden MD LAB BLOOD ORDERABLES Final Result Performing Organization Address City/[facility]/ZIP Co de Phone Number [facility] (RENEA) 1 [facility] [place] [employer] [address] * Albumin Creatinine Ratio, Urine (08/04/2024 11:14 AM MANAGER OF MEDICAL) Albumin Ur 24.8 mg/L Comment: Interpretive Data No reference range established. Current interpretive data was last revised 2019. Testing performed by: [facility], [address] [place] [address]., [id number] Creatinine Ur 90.4 mg/dL JAYLIN LION (RENEA) Comment: Interpretive Data No reference range established. Current interpretive data was last revised 2019. Testing performed by: [facility], [address] [place] [address]., [id number] Albumin Creatinine Ratio, Ur 27 1 - 29 mg/g JAYLIN LION (RENEA) Comment:Testing performed by : [facility], [address] [place] [address]., [id number] Urine 08/04/2024 11:1 4 AM MANAGER OF MEDICAL 08/04/2024 5:55 PM MANAGER OF MEDICAL Dolly Walden MD LAB URINE ORDERABLES Final Result Performing Organization Address [facility] de Phone Number JAYLIN LION (LYNDORA) 1 [facility] [place] [address] * (ABNORMAL) Hemoglobin A1c (08/04/2024 11:14 AM MANAGER OF MEDICAL) Pathologist [facility] Hgb A1C 7.4(H) 4.0 - 5.6 % Estimated Average Glucose 166 mg/dL JAYLIN LION (RENEA) Comment: The ADA recommends reporting an estimated Average Glucose (eAG) with all Hemoglobin A1c results using the equation derived from a study of 507 normal and diabetic adults. Minority populations were underrepresented and children were not included. (Diabetes Care 31:9506-6353, 2008). The eAG is not equivalent to a fasting glucose. Blood 08/04/2024 11:1 4 AM MANAGER OF MEDICAL 08/04/2024 11:24 AM MANAGER OF MEDICAL Dolly Walden MD LAB BLOOD ORDERABLES Final Result Performing Organization Address City/[facility]/ZIP Co de Phone Number JAYLIN LION (LYNDORA) 1 [facility] [place] [address] * (ABNORMAL) Comprehensive metabolic panel (08/04/2024 11:14 AM MANAGER OF MEDICAL) Sodium 137 135 - 145 mmol/L Potassium, pl 4.1 3.3 - 4.9 mmol/L [facility] (RENEA) Chloride 98 97 - 110 mmol/L [facility] (RENEA) CO2 23 22 - 32 mmol/L [facility] (RENEA) Anion gap 16(H) 2 - 15 mmol/L [facility] (RENEA) BUN 12 6 - 25 mg/dL [facility] (RENEA) Creatinine 0.73(L) 0.80 - 1.30 mg/dL [facility] (RENEA) Glucose 137 70 - 199 mg/dL [facility] (RENEA) Comment: Interpretive Data Fasting glucose >/= 126 mg/dl is diagnostic for diabetes. Fasting is defined as no caloric intake for at least 8 hours. Fasting glucose between 100 mg/dl to 125 mg/dl is diagnostic of prediabetes. In a patient with classic symptoms of hyperglycemia or hyperglycemic crisis, a random glucose >/= 200 mg/dl is diagnostic for diabetes. In the absence of unequivocal hyperglycemia, results should be confirmed by repeat testing. The classification and Diagnosis of Diabetes Diabetes Care 2021; 46: S19-S40. Current interpretive data was last revised 2022. Calcium 9.7 8.5 - 10.3 mg/dL [facility] (RENEA) Bilirubin, total 0.7 0.1 - 1.2 mg/dL [facility] (RENEA) Protein, pl 7.8 6.5 - 8.5 g/dL [facility] (RENEA) Albumin 4.6 3.5 - 5.0 g/dL [facility] (RENEA) Alk phos 64 40 - 130 Units/L [facility] (RENEA) ALT 27 7 - 55 Units/L [facility] (RENEA) AST 21 10 - 50 Units/L [facility] (RENEA) Blood 08/04/2024 11:1 4 AM MANAGER OF MEDICAL 08/04/2024 11:24 AM MANAGER OF MEDICAL us Dolly Walden MD LAB BLOOD ORDERABLES Final Result [facility] (RENEA) 1 [facility] Department [place] [address] * PSA screen (03/28/2024 7:41 AM CDT) PSA-Total 1.50 <=5.40 ng/mL Comment: Interpretive Data AGE SEX REFERENCE INTERVAL 0 minutes-150 years Female None 0 minutes-49 years Male None 50-59 years Male 0-3.90 60-69 years Male 0-5.40 70-79 years Male 0-6.20 80-150 years Male 0-6.20 The Eliseo PSA Total assay procedure was used. Results from different manufacturers or methods may not be comparable. Serial testing should be performed using the same method. Current interpretive data last revised 22. Blood 03/28/2024 7:41 AM CDT 03/28/2024 8:04 AM CDT Result [facility] Dolly Walden MD LAB BLOOD ORDERABLES Final Result Performing Organization Address City/State/[facility] Co de Phone Number [facility] (LYNDORA) 1 [facility] Department [place] [address] * (ABNORMAL) Diabetic Eye Exam (01/07/2023) Result [facility] Historical Provider HEALTH MAINTENANCE Final Result * DIABETES FOOT EXAM (01/28/2018) Pathologist [facility] Diabetic Foot Exam Unknown Historical Provider MD HEALTH MAINTENANCE Final Result * Hepatitis C antibody (11/11/2017 10:54 AM MANAGER OF MEDICAL) Pathologist [facility] Hep C Ab NON-REACTI VE NON-REACTI VE [facility] [place] SIGNAL TO CUT-OFF 0.03 <1.00 [facility] [place] 11/11/2017 10:5 4 AM MANAGER OF MEDICAL 11/11/2017 10:59 AM MANAGER OF MEDICAL Narrative [facility] - 11/16/2017 4:43 PM MANAGER OF MEDICAL FASTING:NO FASTING: NO Resulting Agency Comment Performing Organization Information: Site ID: MD Name: [facility] Address: [address] [address] Director: Denzel Prescott D.O., MPH Michael Powell MD LAB MICROBIOLOGY - GENERAL ORDERABLES Final Result [facility] [place] * COLONOSCOPY (04/07/2008) Colonoscopy Abnormal Comment:Polyps. Repeat pendi ng path report in 3-5 years. us Historical Provider HEALTH MAINTENANCE Final Result from Last 3 Months or Most Recently Relevant to Health Maintenance Insurance [facility]ICARE [facility] MEDICARE [place] ACCESS ID MEDICARE BL CHOICE [facility] PPO ID MEDICARE [employer]ICIANS [place] [employer] [place] Advance Directives For more information, please contact: [phone] * Full Code (Latest Code Status on File) Date Activated Date Inactivated Comments 03/19/2022 4:24 PM 03/21/2022 7:02 PM * Full Code Date Activated Date Inactivated Comments 01/09/2022 9:47 AM 01/09/2022 4:01 PM * Full Code Date Activated Date Inactivated Comments 01/15/2021 12:27 PM 01/16/2021 5:20 PM * Full Code Date Activated Date Inactivated Comments 07/13/2020 9:22 AM 07/13/2020 4:25 PM * Full Code Date Activated Date Inactivated Comments 07/13/2020 9:22 AM 07/13/2020 9:22 AM Care Teams Accounting Practice Manager Relationship Specialty Start Date End Date Dolly Walden MD 4 [facility] [place] [id number] PCP - General 11/04/18 Cj Epstein MD 4 [facility] [place] [id number] Consulting Physician General Surgery 03/21/22 Kye Jerome, DEYANIRAM [address] [place] [id number] Consulting Physician Orthopedic Surgery 12/05/22
--- OUTSIDE RECORDS SUMMARY | 2024-11-02 00:37 | XMS_ITS | Referral Summary ---
Author Organization [facility] Address [address] [place] [phone] Care Team Providers Care Scrap Sawyer Name Role Phone Dolly Walden MD Primary Care Provider [phone] Cj Epstein MD Unavailable Kye Jerome DPM Unavailable [phone] Encounters Date Type Department Care Team Description 09/30/2024 8:30 AM ENROLLMENT PROCESSOR Lab [address] [address] Pure hypercholesterolemia 09/29/2024 10:15 AM ENROLLMENT PROCESSOR Office Visit [place] [facility] at [address] [place] [phone] Vadim East NP Primary hypertension (Primary Dx); Pure hypercholesterolemia; Morbid obesity (HCC); Orthostatic hypotension 09/26/2024 11:20 AM ENROLLMENT PROCESSOR Lab [address] [address] 08/04/2024 11:10 AM ENROLLMENT PROCESSOR [address] [address] from Last 3 Months Allergies Active Allergy Reactions Criticality Noted Date [...] 01/15/2021 Assessment & Plan (11/07/2021 8:51 AM ENROLLMENT PROCESSOR): Continue BiPAP as needed. With the weight loss after surgery this hopefully will no longer be needed. Arthritis of left subtalar joint 12/19/2020 Posterior tibial tendon dysfunction, left 2020 Peroneal tendinitis, left 10/12/2020 Plantar fasciitis 10/12/2020 Martinez's esophagus with dysplasia 06/27/2020 Overview (06/27/2020): Added automatically from request for surgery [id number] Age-related osteoporosis wit hout current pathological fracture 11/10/2019 Abnormal results of cardiovascular function stud ies 12/22/2018 Overview (12/22/2018): Added automatically from request for surgery [id number] Fatty liver 11/11/2017 Assessment & Plan (11/11/2017 10:37 AM ENROLLMENT PROCESSOR): Most likely elevated lft's due to ahn but will complete work up for other chronic liver conditions (ferritin in the past 450's- get HFE gene) Start vit E 800 units Encourage to lose weight (at least 5%) and eat healthier He is looking forward to joining the gym again Elevated transaminase level 11/11/2017 Assessment & Plan (11/11/2017 10:40 AM ENROLLMENT PROCESSOR): rtc 8-10 months Aftercare following left knee joint replacement surgery 06/23/2017 Acquired pes planovalgus of left foot 03/05/2017 Trochanteric bursitis of left hip 03/05/2017 Single-level cervical spondylosis without myelop athy 12/09/2016 Overview (02/06/2017): Single-level cervical spondylosis without myelopathy Benign hypertension 01/29/2016 Overview (12/20/2016): BENIGN HYPERTENSION Morbid obesity 01/28/2014 Overview (12/19/2016): MORBID OBESITY Assessment & Plan (07/29/2022 10:12 AM ENROLLMENT PROCESSOR): Continue activity as tolerates but patient is limited by the left foot. We will continue to encourage him to attend the monthly support groups and see the lump receiver. We will see him back in 6 [...] understanding. Assessment & Plan (10/01/2021 10:50 AM ENROLLMENT PROCESSOR): We have stressed the importance of trying [...] reassess. Assessment & Plan (09/03/2021 10:28 AM ENROLLMENT PROCESSOR): I have stressed the importance of trying [...] month. Assessment & Plan (08/01/2021 2:20 PM ENROLLMENT PROCESSOR): Given their past success the patient would [...] hyperglycemia, without long-term current use of insulin ([facility]) 01/28/2014 Overview (12/20/2016): DMII WO CMP UNCNTRLD Diabetic neuropathy 01/28/2014 Overview (12/19/2016): NEUROPATHY IN DIABETES Pure hypercholesterolemia 01/28/2014 Overview (12/19/2016): PURE HYPERCHOLESTEROLEM Assessment & Plan (09/03/2021 10:28 AM ENROLLMENT PROCESSOR): Continue current statin Assessment & Plan (08/01/2021 2:19 PM ENROLLMENT PROCESSOR): Continue current statin therapy Lower limb joint arthritis 01/28/2014 Overview (12/19/2016): OSTEOARTHROS NOS-L/LEG Gastroesophageal reflux disease 01/28/2014 Overview (12/19/2016): ESOPHAGEAL REFLUX Assessment & Plan (11/11/2017 10:37 AM ENROLLMENT PROCESSOR): On ppi daily, asymptomatic Hypertension 2013 Overview (12/19/2016): Hypertension Assessment & Plan (08/01/2021 2:19 PM ENROLLMENT PROCESSOR): Continue current medical regimen Steatosis of liver 10/12/2013 Overview (12/19/2016): Fatty liver Martinez's esophagus 09/01/2013 Overview (12/19/2016): Barretts esophagus Assessment & Plan (11/11/2017 10:37 AM ENROLLMENT PROCESSOR): egd recently without dysplasia, egd due 2020 Obstructive sleep apnea syndrome 09/01/2013 Overview (12/19/2016): HOWARD on CPAP Neuritis or radiculitis due to rupture of lumbar intervertebral disc 06/03/2013 Overview (12/19/2016): Lumbar radiculitis Stenosis of lateral recess of lumbar spine 06/03 Overview (12/19/2016): Stenosis of lateral recess of lumbar spine Osteoarthritis 01/31/2013 Overview (04/02/2017): Overview: 2015 IMO Updt Cholelithiasis 06/11/2012 Overview (12/19/2016): Cholelithiases Carpal tunnel syndrome 12/09/2011 Overview (12/19/2016): Carpal tunnel syndrome, bilateral Adiposity 11/12/2011 Overview (12/19/2016): Obesity Hypersomnia with sleep apnea 11/12/2011 Overview (12/19/2016): Hypersomnia with sleep apnea Ulnar neuropathy 11/12/2011 Overview (12/19/2016): Ulnar nerve neuropathy Stenosis of carotid artery 11/12/2011 Overview (12/20/2016): Carotid stenosis Resolved Problems Problem Noted Date Diagnosed Date Resolved Date BMI 45.0-49.9, adult ([facility]) 11/11/2017 07/29/2022 Assessment & Plan [...] pylori. Assessment & Plan (11/07/2021 8:52 AM ENROLLMENT PROCESSOR): The patient is really going to try [...] reassess. Assessment & Plan (11/11/2017 10:40 AM ENROLLMENT PROCESSOR): Encourage to lose weight Immunizations Immunization Administration Dates Next Due Influenza, Quadrivalent, Spl it, Preservative Free, Intramuscular 06/01/2020 Moderna SARS-CoV-2 Monovalent Vaccination (12+ Y RS) 10/24/2020 Pneumococcal Polysaccharide PPV23 08/02/2014, Tdap 08/02/2014 ZOSTER LIVE 07/15/2014 ZOSTER Recombinant 10/03/2019,08/02/2019 Social History Tobacco Use Types Packs/Day Years [...] on file Legal Sex Male 12:14 AM ENROLLMENT PROCESSOR Gender Identity Not on file Sexual Orientation Not on file Last Filed Vital Signs Vital Sign Reading Time Taken Comments Blood Pressure 122/85 09/29/2024 9:51 AM ENROLLMENT PROCESSOR Pulse 99 09/29/2024 9:51 AM ENROLLMENT PROCESSOR Temperature 36.2 C (97.2 F) 05/14/2023 12:21 PM CDT Respiratory Rate 18 09/24/2023 9:56 AM ENROLLMENT PROCESSOR Oxygen Saturation 98% 04/30/2023 2:03 PM CDT Inhaled Oxygen Concentration - - Weight 136.1 kg (300 lb) 09/29/2024 9:51 AM ENROLLMENT PROCESSOR Height 177.8 cm (5' 10 ) 09/29/2024 9:51 AM ENROLLMENT PROCESSOR Body Mass Index 43.05 09/29/2024 9:51 AM ENROLLMENT PROCESSOR Plan of Treatment Not on file Medical Devices Implanted Type Area Fiber Optics Engineer Device Identifier Shelf Expiration Date Model / Serial / Lot Destini Craniomaxillofacial [id number] Macario Asnis 1.2mm 100mm Micro Wire Fixation Nonsterile 3mm - [id number] Implanted:Qty: 1 on 05/27/2019 by Kye Jerome DPM at [facility] Left: Foot Destini Craniomaxillofacial [id number] / / 3.8mm Cannulated Countersink Implanted:Qty: 1 on 05/27/2019 by Kye Jerome DPM at [facility] Left: Foot [employer] [id number] / / Destini [employer] [id number] Asnis 3mm 30mm 6mm Self Cut Cannulated Color Coded Low Profile - [id number] Implanted:Qty: 1 on 05/27/2019 by Kye Jerome, JESSICA at [facility] Left: Foot [employer] [id number] / / Feedo Inc [id number] Augment Graft 3cc Bone - [id number] Implanted:Qty: 1 on 01/15/2021 by Johnathon Davis Jr., MD at [facility] Left: Foot [employer] 06/13/2021 [id number] / / [id number] [employer] [id number] Darco Od7.5 Mm L80 Mm L16 Mm Head Screw Bone - [id number] Implanted:Qty: 1 on 01/15/2021 by Johnathon Davis Jr., MD at [facility] Left: Foot [employer] [id number] / / [employer] [id number] Darco 7.5mm 90mm 16mm Head Foot Screw Bone - [id number] Implanted:Qty: 1 on 01/15/2021 by Johnathon Davis Jr., MD at [facility] Left: Foot [employer] [id number] / / [employer] Fuseforce L10 Mm X W10 Mm Hand Staple Bone Sterile 2 Mm Reamer [id number] - [id number] Implanted:Qty: 1 on 12/05/2022 by Kye Jerome DPM at [facility] Right: Foot [employer] [id number] / / [id number] Telles 9 F Dual- Lumen Cv Catheter With Surecuff Tissue Ingrowth Cuff, 54 Cm Tip-To-Cuff Length [id number] Implanted:Qty: 1 on 02/23/2023 by Jun Mcleod MD at [facility] Right: Chest [employer] [id number] 11/11/2025 [id number] / / Description:[facility] lists this item as a [facility] Explanted Type Area Fiber Optics Engineer Device Identifier Shelf Expiration Date Model / Serial / Lot Feedo Inc [id number] Macario 2.5mm Wire Fixation - [id number] Explanted:Qty: 2 on 01/15/2021 at [facility] Left: Foot [employer] [id number] / / Procedures Procedure Name Priority Date/Time Associated Diagnosis Comments LIPID PANEL Routine 09/30/2024 8:37 AM ENROLLMENT PROCESSOR Pure hypercholesterolemia EGFR Routine 09/26/2024 11:24 AM ENROLLMENT PROCESSOR BASIC METABOLIC PANEL Routine 09/26/2024 11:24 AM ENROLLMENT PROCESSOR EGFR Routine 08/04/2024 11:14 AM ENROLLMENT PROCESSOR COMPREHENSIVE METABOLIC PANEL Routine 08/04/2024 11:14 AM ENROLLMENT PROCESSOR ALBUMIN CREATININE RATIO, URINE Routine 08/04/2024 11:14 AM ENROLLMENT PROCESSOR HEMOGLOBIN A1C Routine 08/04/2024 11:14 AM ENROLLMENT PROCESSOR PSA SCREEN Routine 03/28/2024 7:41 AM CDT DIABETIC EYE EXAM Routine 01/07/2023 DIABETES FOOT EXAM Routine 01/28/2018 HEPATITIS C ANTIBODY Routine 11/11/2017 10:54 AM ENROLLMENT PROCESSOR COLONOSCOPY Routine 04/07/2008 from Last 3 Months or Most Recently Relevant to Health Maintenance Results * Lipid panel (09/30/2024 8:37 AM ENROLLMENT PROCESSOR) Cholesterol 123 30 - 199 mg/dL Comment: [...] mg/dL High: >160 mg/dL Calculated using the Oscar LDL-C estimating equation. This equation was implemented on 2024. Prior to this date LDL-C was estimated using the Friedewald equation. Literature References: 1. Expert Panel on Integrated Guidelines for Cardiovascular Health and Risk Reduction in Children and Adolescents. Pediatrics 2011;128:S213 2. NCEP Expert Panel. Circulation 2004;110:227 3. Oscar Patrick al. SHARAD Cardiol. 2020 January 12;5(5):540-548. doi: 10.1001/jamacardio.2020.0013 Current Interpretive Data was last revised on 2024. Non-HDL Cholesterol 82 mg/dL JAYLIN LION (RENEA) Comment: Interpretive Data [...] revised on 2018. Chol/HDL ratio 3 JASWANT Feldman AYAD (UTICA) Blood 09/30/2024 8:37 AM ENROLLMENT PROCESSOR 09/30/2024 9:08 AM ENROLLMENT PROCESSOR us Kashmir Hall MD LAB BLOOD ORDERABLES Final Resu lt JAYLIN AYAD (UTICA) 1 [facility] Department [place] [address] * eGFR (09/26/2024 11:24 AM ENROLLMENT PROCESSOR) eGFR >90 >=60 mL/min/1. 73 m2 Comment: [...] reviewed 2021. Blood 09/26/2024 11:2 4 AM ENROLLMENT PROCESSOR 09/26/2024 11:33 AM ENROLLMENT PROCESSOR us Dolly Walden MD LAB BLOOD ORDERABLES Final Result JAYLIN ZIMMER) 1 [facility] [place] [address] * (ABNORMAL) Basic metabolic panel (09/26/2024 11:24 AM ENROLLMENT PROCESSOR) [facility] Sodium 139 135 - 145 mmol/L Potassium, pl 3.9 3.3 - 4.9 mmol/L [facility] (RENEA) Chloride 106 97 - 110 mmol/L [facility] (RENEA) CO2 22 22 - 32 mmol/L [facility] (REN[place]) Anion gap 12 2 - 15 mmol/L [facility] (RENEA) BUN 6 6 - 25 mg/dL [facility] ([facility]) Creatinine 0.68(L) 0.80 - 1.30 mg/dL [facility] (RENEA) Glucose 203(H) 70 - 199 mg/dL [facility] (RENEA) Comment: Interpretive Data Fasting glucose [...] 2022. Calcium 9.9 8.5 - 10.3 mg/dL [facility] (RENEA) Blood 09/26/2024 11:2 4 AM ENROLLMENT PROCESSOR 09/26/2024 11:33 AM ENROLLMENT PROCESSOR us Dolly Walden MD LAB BLOOD ORDERABLES Final Result JAYLIN ZIMMER) 1 [facility] Department [place] [address] * eGFR (08/04/2024 11:14 AM ENROLLMENT PROCESSOR) [facility] eGFR >90 >=60 mL/min/1. 73 m2 Comment: [...] reviewed 2021. Blood 08/04/2024 11:1 4 AM ENROLLMENT PROCESSOR 08/04/2024 11:24 AM ENROLLMENT PROCESSOR Dolly Walden MD LAB BLOOD ORDERABLES Final Result JAYLIN LION (UTICA) 1 [facility] Department [place] [address] * Albumin Creatinine Ratio, Urine (08/04/2024 11:14 AM ENROLLMENT PROCESSOR) Albumin Ur 24.8 mg/L Comment: Interpretive Data No reference range established. Current interpretive data was last revised 2019. Testing performed by: [facility], [address] [place] [address], [place]., [address] Creatinine Ur 90.4 mg/dL JAYLIN LION (RENEA) Comment: Interpretive Data No reference range established. Current interpretive data was last revised 2019. Testing performed by: [facility], [address] [place] [address]., [address] Albumin Creatinine Ratio, Ur 27 1 - 29 mg/g JAYLIN LION (RENEA) Comment:Testing performed by : [address] [address] Urine 08/04/2024 11:1 4 AM ENROLLMENT PROCESSOR 08/04/2024 5:55 PM ENROLLMENT PROCESSOR Dolly Walden MD LAB URINE ORDERABLES Final Result Performing Organization Address City/[facility] Co de Phone Number JAYLIN LION (RENEA) 1 [facility] [place] [address] * (ABNORMAL) Hemoglobin A1c (08/04/2024 11:14 AM ENROLLMENT PROCESSOR) Hgb A1C 7.4(H) 4.0 - 5.6 % Estimated Average Glucose 166 mg/dL [facility] (RENEA) Comment: The ADA recommends reporting an estimated Average Glucose (eAG) with all Hemoglobin A1c results using the equation derived from a study of 507 normal and diabetic adults. Minority populations were underrepresented and children were not included. (Diabetes Care 31:6640-7263, 2008). The eAG is not equivalent to a fasting glucose. Blood 08/04/2024 11:1 4 AM ENROLLMENT PROCESSOR 08/04/2024 11:24 AM ENROLLMENT PROCESSOR Dolly Walden MD LAB BLOOD ORDERABLES Final Result Performing Organization Address [facility] Co de Phone Number JAYLIN LION (RENEA) 1 [facility] [place] [address] * (ABNORMAL) Comprehensive metabolic panel (08/04/2024 11:14 AM ENROLLMENT PROCESSOR) Sodium 137 135 - 145 mmol/L Potassium, pl 4.1 3.3 - 4.9 mmol/L [facility] ([facility]) Chloride 98 97 - 110 mmol/L [facility] ([place]EN[place]) CO2 23 22 - 32 mmol/L [facility] ([facility]) Anion gap 16(H) 2 - 15 mmol/L [facility] ([place]) BUN 12 6 - 25 mg/dL [facility] ([place]) Creatinine 0.73(L) 0.80 - 1.30 mg/dL [facility] (RENEA) Glucose 137 70 - 199 mg/dL [facility] (RENEA) Comment: Interpretive Data Fasting glucose [...] [facility] (RENEA) Blood 08/04/2024 11:1 4 AM ENROLLMENT PROCESSOR 08/04/2024 11:24 AM ENROLLMENT PROCESSOR us Dolly Walden MD LAB BLOOD ORDERABLES Final Result [facility] (RENEA) 1 [facility] Department [place] [address] * PSA screen (03/28/2024 7:41 AM CDT) [...] 7:41 AM CDT 03/28/2024 8:04 AM CDT Dolly Walden MD LAB BLOOD ORDERABLES Final Result Performing Organization Address City/[facility]/ZIP Co de Phone Number JAYLIN LION (UTICA) 1 [facility] Department [place] [address] * (ABNORMAL) Diabetic Eye Exam (01/07/2023) Historical Provider HEALTH MAINTENANCE Final Result * DIABETES FOOT EXAM (01/28/2018) Diabetic Foot Exam Unknown Historical Provider HEALTH MAINTENANCE Final Result * Hepatitis C antibody (11/11/2017 10:54 AM ENROLLMENT PROCESSOR) [facility] Hep C Ab NON-REACTI VE NON-REACTI VE [facility] [place] SIGNAL TO CUT-OFF 0.03 <1.00 [facility] [place] 11/11/2017 10:5 4 AM ENROLLMENT PROCESSOR 11/11/2017 10:59 AM ENROLLMENT PROCESSOR Narrative [facility] - 11/16/2017 4:43 PM ENROLLMENT PROCESSOR FASTING:NO FASTING: NO Resulting Agency Comment Performing Organization Information: Site ID: [id number] Name: [facility] Address: [address] [address] Director: Denzel Prescott D.O., MPH Result [facility] Michael Powell MD LAB MICROBIOLOGY - GENERAL ORDERABLES Final Result Performing Organization Address [facility] Co de Phone Number [facility] [place] * COLONOSCOPY (04/07/2008) Pathologist [facility] Colonoscopy Abnormal Comment:Polyps. Repeat pendi ng path report in 3-5 years. Result [facility] Historical Provider HEALTH MAINTENANCE Final Result from Last 3 Months or Most Recently Relevant to Health Maintenance Insurance MEDICARE [facility] [place] [facility] [place] [facility] [place] Advance Directives For more information, please contact: [phone] * Full Code (Latest Code Status on [...] 9:22 AM 07/13/2020 9:22 AM Care Teams Scrap Sawyer Relationship Specialty Start Date End Date Dolly Walden MD [address] [employer] [facility] [place] [address] PCP - General 11/04/18 Cj Epstein MD [address] [employer] [facility] [place] [address] Consulting Physician General Surgery 03/21/22 Kye Jerome, DPM [address] [place] [address] Consulting Physician Orthopedic Surgery 12/05/22
--- OUTSIDE RECORDS SUMMARY | 2024-11-02 00:37 | XMS_ITS | Referral Summary ---
Author Organization [facility] Address [address] [place] [address] Care Team Providers Care Dupligraph Operator Name Role Phone Denzel Dalton MD Unavailable [phone] Lionel Faith MD Unavailable [phone] Dolly Walden MD Primary Care Provider [phone] Keisha Boone APRN-NEON TECHNICIAN Unavailable [phone] Source Comments [facility],non-owned Affiliates and Associated Physician Practices is amultiple site organization consisting of ambulatory clinics and hospital sitesin [place], [place], [place] and [place]. This disclosure is being madepursuant to the Care Everywhere program and may not contain all information available regarding this patient. Last updated 18.[facility] Allergies Active Allergy Reactions Criticality Noted [...] Mass Index 37.45 04/22/2023 7:40 AM CDT Functional Status Functional Status Response Date of Assess ment Is person deaf or have serious hearing difficult y? No 04/22/2023 Is person blind or have serious difficulty seein g? No 04/22/2023 Does person have serious dif ficulty walking/climbing stairs? No 04/22/2023 Does person have difficulty dressing/bathing? No 04/22/2023 Does person have difficulty doing errands alone? No 04/22/2023 Cognitive Status Response Date of Assessm ent Does person have difficulty concentrating/remembering/making decisions? No 04/22/2023 Plan of Treatment Not on file Medical Devices Implanted Type Area Mobile Equipment Operator Device Identifier Shelf Expiration Date Model / Serial / Lot Kit Bngf 3cc Apr Inj Implanted:Qty: 1 on 06/19/2022 by Mitchell Salazar DPM at [facility] Left: Foot [employer] [id number] / / [id number] Graft Bone Canc 4-9.5mm 15cc Frzdr Chp Implanted:Qty: 1 on 06/19/2022 by Mitchell Salazar DPM at [facility] Left: Foot [employer] 12/10/2026 [id number] / / [id number] Pin Fx 1.1mm Ortholoc 3di Sm Temp Disp Implanted:Qty: 2 on 06/19/2022 by Mitchell Salazar DPM at [facility] Explanted:Qty: 1 on 02/25/2023 at [facility] Left: Foot [employer] [id number] / / Pro-Dense Injectable Calcium Sulfate, Calcium Phosphate Implanted:Qty: 1 on 02/25/2023 by Vadim Salazar DPM at [facility] Left: Foot [employer] 12/03/2026 [id number] / / [id number] Explanted Type Area Mobile Equipment Operator Device Identifier Shelf Expiration Date Model / Serial / Lot Mdco Plate Implanted:Qty: 1 on 06/19/2022 by Mitchell Salazar DPM at [facility] Explanted:Qty: 1 on 02/25/2023 by Vadim Salazar DPM at [facility] Left: Foot [id number] / / Screw 3.5mm 18mm Ft Slf-Tap Lck Pa On Implanted:Qty: 2 on 06/19/2022 by Mitchell Salazar DPM at [facility] Explanted:Qty: 2 on 02/25/2023 by Vadim Salazar DPM at [facility] Left: Foot [employer] [id number] / / Screw 3.5mm 22mm Ft Slf-Tap Lck Pa On Implanted:Qty: 2 on 06/19/2022 by Mitchell Salazar DPM at [facility] Explanted:Qty: 2 on 02/25/2023 by Vadim Salazar DPM at [facility] Left: Foot [employer] [id number] / / Wedge Apr Thk8mm 22mm 22mm Biofm Pizarro Implanted:Qty: 1 on 06/19/2022 by Mitchell Salazar DPM at [facility] Explanted:Qty: 1 on 02/25/2023 by Vadim Salazar DPM at [facility] Left: Foot [employer] 04/21/2028 [id number] / / [id number] Administered Medications Care Teams Dupligraph Operator Relationship Specialty Start Date End Date Dolly Walden MD [address] [place] [address] PCP - General Internal Medicine 06/19/22 [place] [address] [place] [address] Orthopedic Surgery 01/31/13 [place] [address] [place] [address] Orthopedic Surgery 03/14/13 Keisha Boone, BATCH RECORDS CLERK-NEON TECHNICIAN [address] [facility] [place] [address] Nurse Practitioner 04/22/23
--- OUTSIDE RECORDS SUMMARY | 2024-11-02 00:37 | XMS_ITS | Patient Health Summary ---
Author Organization [facility] Address [address] [facility] [place] [address] Care Team Providers Care Small Products Ii Assembler Name Role Phone Denzel Dalton MD Unavailable [phone] Lionel Faith MD Unavailable [phone] Dolly Walden MD Primary Care Provider [phone] Keisha Boone APRN-LIBRARIAN SPECIAL LIBRARY Unavailable [phone] Note from [facility],non-owned Affiliates and Associated Physician Practices is amultiple site organization consisting of ambulatory clinics and hospital sitesin [place], [place], [place] and [place]. This disclosure is being madepursuant to the Care Everywhere program and may not contain all information available regarding this patient. Last updated 18.[facility] Allergies * Bupropion(Nausea and/or Vomiting) -Low Criticality * Naltrexone(Nausea and/or Vomiting) -Low Criticality * Penicillins(Rash) -Medium Criticality Medications * Be aware that medications may not be up to date on this document. Always verify current medications with the patient. * Rosuvastatin Calcium (CRESTOR PO) Take 25 mg by mouth once daily * METFORMIN HCL PO Take 1,000 mg by mouth 2 times daily * meloxicam (Mobic) 15 MG tablet Take 1 (one) tablet by mouth once daily * alendronate (Fosamax) 70 MG tablet(Started 11/17/2021) TAKE ONE TABLET BY MOUTH WEEKLY ON AN EMPTY STOMACH. REMAIN UPRIGHT FOR AT LEAST 30 MINUTS * aspirin EC (Ecotrin) 81 MG tablet Take 1 (one) tablet by mouth once daily * pantoprazole EC (Protonix) 40 MG tablet(Started 12/16/2021) Take 1 (one) tablet by mouth once daily * RIFAMPIN IV Not sure of dose given OD in his chest port * empagliflozin (Jardiance) 10 MG tablet Take 1 (one) tablet by mouth once daily * Cholecalciferol 25 MCG (1000 UT) Take 2 (two) tablets by mouth once daily * vitamin E (Tocopheryl) 1000 UNIT capsule Take 1 (one) capsule by mouth once daily Active Problems Problem Noted Date Diagnosed Date Osteoarthrosis involving lower leg 01/31/2013 Knee joint replacement by other means 01/31/2013 [...] Mass Index 37.45 04/22/2023 7:40 AM CDT Medical Devices Implanted Type Area Scudding Inspector Device Identifier Shelf Expiration Date Model / Serial / Lot Kit Bngf c Apr Inj Implanted:Qty: 1 on 06/19/2022 by Mitchell Salazar DPM at [facility] Left: Foot [employer] [id number] / / [id number] Graft Bone Canc 4-9.5mm 15cc Frzdr Chp Implanted:Qty: 1 on 06/19/2022 by Mitchell Salazar DPM at [facility] Left: Foot [employer] 12/10/2026 [id number] / / [id number] Pin Fx 1.1mm Ortholoc 3di Sm Temp Disp Implanted:Qty: 2 on 06/19/2022 by Mitchell Salazar DPM at [facility] Explanted:Qty: 1 on 02/25/2023 at [facility] Left: Foot [employer] [id number] / / Pro-Dense Injectable Calcium Sulfate, Calcium Phosphate Implanted:Qty: 1 on 02/25/2023 by Vadim Salazar DPM at [facility] Left: Foot [employer] 12/03/2026 [id number] / / [id number] Explanted Type Area Scudding Inspector Device Identifier Shelf Expiration Date Model / Serial / Lot Mdco Plate Implanted:Qty: 1 on 06/19/2022 by Mitchell Salazar DPM at [facility] Explanted:Qty: 1 on 02/25/2023 by Vadim Salazar DPM at [facility] Left: Foot [id number] / / Screw 3.5mm 18mm Ft Slf-Tap Lck Pa On Implanted:Qty: 2 on 06/19/2022 by Mitchell Salazar DPM at [facility] Explanted:Qty: 2 on 02/25/2023 by Vadim Salazar DPM at [facility] Left: Foot [employer] [id number] / / Screw 3.5mm 22mm Ft Slf-Tap Lck Pa On Implanted:Qty: 2 on 06/19/2022 by Mitchell Salazar DPM at [facility] Explanted:Qty: 2 on 02/25/2023 by Vadim Salazar DPM at [facility] Left: Foot [employer] [id number] / / Apr Thk8mm 22mm 22mm Biofm Pizarro Implanted:Qty: 1 on 06/19/2022 by Mitchell Salazar DPM at [facility] Explanted:Qty: 1 on 02/25/2023 by Vadim Salazar DPM at [facility] Left: Foot [employer] 04/21/2028 [id number] / / [id number] Procedures * GLUCOSE - POINT OF CARE(Performed 04/22/2023) * XR FOOT LEFT 3VW OR MORE(Performed 04/22/2023) Performed for Post-operative state * PATHOLOGY TISSUE EXAM (STL)(Performed 04/22/2023) Performed for Diagnosis unknown * CULTURE FUNGUS OTHER+FUNGUS SMEAR(Performed 04/22/2023) Performed for Diagnosis unknown * CULTURE TISSUE+GRAM STAIN(Performed 04/22/2023) Performed for Diagnosis unknown * CULTURE ANAEROBE(Performed 04/22/2023) Performed for Diagnosis unknown * IRRIGATION/DEBRIDEMENT FOOT/ANKLE(Performed 04/22/2023) Performed for S91.309S * GLUCOSE - POINT OF CARE(Performed 04/22/2023) * FL EDWIN SURGERY(Performed 02/25/2023) Performed for Pain * GLUCOSE - POINT OF CARE(Performed 02/25/2023) * SUSCEPTIBILITY FUNGUS/YEAST(Performed 02/25/2023) Performed for Diagnosis unknown * CULTURE FUNGUS OTHER+FUNGUS SMEAR(Performed 02/25/2023) Performed for Diagnosis unknown * CULTURE HARDWARE(Performed 02/25/2023) Performed for Diagnosis unknown * CULTURE FUNGUS OTHER+FUNGUS SMEAR(Performed 02/25/2023) Performed for Diagnosis unknown * CULTURE HARDWARE(Performed 02/25/2023) Performed for Diagnosis unknown * CULTURE FUNGUS OTHER+FUNGUS SMEAR(Performed 02/25/2023) Performed for Diagnosis unknown * CULTURE HARDWARE(Performed 02/25/2023) Performed for Diagnosis unknown * WA REMOVAL DEEP IMPLANT(Performed 02/25/2023) * GLUCOSE - POINT OF CARE(Performed 02/25/2023) * CARDIAC RHYTHM STRIP ORDER(Performed 06/21/2022) * GLUCOSE - POINT OF CARE(Performed 06/19/2022) * FL EDWIN SURGERY(Performed 06/19/2022) Performed for Left foot pain * LENGTHENING HEEL CORD/ACHILLES(Performed 06/19/2022) * WA REPAIR PERONEAL TENDONS(Performed 06/19/2022) * REPAIR TENDON FOOT/ANKLE(Performed 06/19/2022) * WA REPAIR NON/MALUNION TARSAL BONE(S)(Performed 06/19/2022) * WA OSTEOTOMY HEEL BONE(Performed 06/19/2022) * PERIPHERAL BLOCK(Performed 06/19/2022) * GLUCOSE - POINT OF CARE(Performed 06/19/2022) * CARDIAC RHYTHM STRIP ORDER(Performed 01/03/2022) * GLUCOSE - POINT OF CARE(Performed 01/02/2022) * FL EDWIN SURGERY(Performed 01/02/2022) Performed for Pain * WA REMOVAL DEEP IMPLANT(Performed 01/02/2022) * GLUCOSE - POINT OF CARE(Performed 01/02/2022) * PAIN MANAGEMENT PROCEDURE TIME(Performed 04/25/2013) Performed for Thoracic Or Lumbosacral Neuritis Or Radiculitis, Unspecified, Lumbosacral spondylosiswithout myelopathy Results * (ABNORMAL) GLUCOSE - POINT OF CARE (04/22/2023 11:26 AM CDT) Only the most recent of8 resultswithin the time period is included. Glucose WB/POC 165(H) 70 - 106 mg/dL 04/22/2023 11:32 AM CDT [facility] Specimen Type Cap Fingerstick 2022 11:32 AM CDT [facility] Blood BLOOD SPECIMEN / Unknown 04/22/2023 11:26 AM CDT 04/22/2023 11:32 AM CDT Vadim Salazar DPM LAB - POINT OF CARE ORDERABLES [facility] [address] [address] * XR FOOT 3+ VW LEFT (04/22/2023 10:57 AM CDT) Anatomical Region Laterality Modality Ankle / Foot Radiographic Peyton ging 04/22/2023 12:0 0 PM CDT Narrative 04/22/2023 12:08 PM CDT PROCEDURE: XR FOOT LEFT 3VW OR MORE DATE/TIME OF EXAM: 04/22/2023 10:57 AM CLINICAL INFORMATION: None relevant/not provided if blank. INDICATION: Z98.890: Other specified postprocedural states ADDITIONAL HISTORY: Left foot pain. COMPARISON: None. FINDINGS/DIAGNOSIS: Three views of the left foot show stabilization screw overlying the distal first metatarsal. There is spurring off the plantar aspect of the calcaneus. There are degenerative changes of the midfoot region. No definite acute fracture is demonstrated. Follow-up exam should be performed as needed. Edited by Selma Hartmann on 04/22/2023 12:07 PM > Interpreting Provider: Cj Galeano MD on 04/22/2023 12:08 PM Procedure Note Cj Galeano MD - 04/22/2023 PROCEDURE: XR FOOT LEFT 3VW OR MORE DATE/TIME OF EXAM: 04/22/2023 10:57 AM CLINICAL INFORMATION: None relevant/not provided if blank. INDICATION: Z98.890: Other specified postprocedural states ADDITIONAL HISTORY: Left foot pain. COMPARISON: None. FINDINGS/DIAGNOSIS: Three views of the left foot show stabilization screw overlying thedistal first metatarsal. There is spurring off the plantar aspect of the calcaneus. There are degenerative changes of the midfoot region. No definite acute fracture is demonstrated. Follow-up exam should beperformed as needed. Edited by Selma Hartmann on 04/22/2023 12:07 PM > Interpreting Provider: Cj Galeano MD on 04/22/2023 12:08 PM Vadim Salazar DPM DIAGNOSTIC IMAGING O RDERABLES * PATHOLOGY TISSUE EXAM (STL) (04/22/2023 9:30 AM CDT) Case Report Surgical Pathology Report Case: [id number] Authorizing Provider: Vadim Salazar DPM Collected: 04/22/2023 09:30 AM Ordering Location: [facility] Received: 04/22/2023 01:52 PM Pathologist: Rio Alexander MD Specimens: A) - Soft Tissue Debridement, Calcaneus left foot B) - Soft Tissue Debridement, Tissue left foot wound 04/23/2023 11:45 AM [facility] Final Diagnosis Left foot, calcaneus, excision: Trabecular bone with reactive and degenerative changes. Intervening marrow space with increased fibrosis and chronic inflammation. Periosteum with granulation tissue, chronic and acute inflammation. No definitive evidence of osteomyelitis. Left foot, wound/soft tissue, excision: Granulation tissue, dense fibroconnective tissue with chronic inflammation including abundant giant cells. Scattered non-viable bone fragments surrounded by chronic inflammatory cells, consistent with chronic osteomyelitis in the right clinical setting. 04/23/2023 11:45 AM [facility] Clinical History Diabetic mellitus. Foot wound. 04/23/2023 11:45 AM [facility] Gross Description Received in formalin labeled with the patient's name and c alcaneus left foot is a 0.6 x 0.6 x 0.4 cm fragment of pale shrestha hard bone. The specimen is entirely submitted in A1 following decalcification. Received in formalin labeled with the patient's name and soft tissue left foot wound the are multiple shrestha tissue fragments, 2 x 2 x 0.3 cm in aggregate. Tour Director sections are submitted in B1. 04/23/2023 11:45 AM [facility] Microscopic Description Microscopic examination performed and corroborates the diagnosis. 04/23/2023 11:45 AM [facility] Disclaimer All histochemical and/or immunohistochemical results are interpreted with controls that demonstrate appropriate staining reactions before reporting results. Note on use of immunocytochemistry reagents: This test was developed and its performance characteristic determined by [facility], Department of Laboratory Medicine. It has not been cleared or approved by the U.S. Food and Drug Administration (FDA). The FDA has determined that such clearance or approval is not necessary. The test is used for clinical purpose. It should not be regarded as investigational or for research. This laboratory is certified to perform high complexity testing. The performance characteristics of the IHC/JEB assays have been validated on formalin-fixed paraffin embedded tissues only. The assays have not been validated on decalcified tissues. Results should be interpreted with caution. 04/23/2023 11:45 AM CDT [facility] Embedded Images 04/23/2023 11:45 AM CDT [facility] Pathology/Cytology DEBRIDEMENT OF SOFT TISSUE / Unknown 04/22/2023 9:30 AM CDT 04/22/2023 1:52 PM CDT Comment:Pre-op diagnosis: S91.309S Miscellaneous samples (specimen) DEBRIDEMENT OF SOFT TISSUE / Unknown 04/22/2023 9:38 AM CDT 04/22/2023 1:52 PM CDT Comment:Pre-op diagnosis: S91.309S [facility] - PATHOLOGY/CYTO LOGY ORDERABLES Performing Organization Address City/[facility]/ZIP Co de Phone Number [facility] [address] [place] [address] * CULTURE FUNGUS OTHER+FUNGUS SMEAR (04/22/2023 9:14 AM CDT) Only the most recent of4 resultswithin the time period is included. Culture No fungus isolated CHANELLE 05/19/2023 6:48 AM CDT [facility] Fungus Stain No yeast or hyphae seen 05/19/2023 6:48 AM CDT [facility] Microbiology ENTIRE FOOT / Unknown 04/22/2023 9:14 AM CDT 04/22/2023 10:20 AM CDT Comment:Pre-op diagnosis: S91.309S Narrative [facility] - 05/19/2023 6:48 AM CDT Surgical Description: Wound Left Foot [facility] - MICROBIOLOGY O RDERABLES [facility] [address] [place] [address], [facility] [phone] * CULTURE TISSUE+GRAM STAIN (04/22/2023 9:14 AM CDT) Culture No growth CHANELLE 04/25/2023 3:04 PM CDT [facility] Gram Stain Light Polymorphonuclear cells 04/25/2023 3:04 PM CDT [facility] Gram Stain No organisms seen 023 3:04 PM CDT [facility] Microbiology ENTIRE FOOT / Unknown 04/22/2023 9:14 AM CDT 04/22/2023 10:20 AM CDT Comment:Pre-op diagnosis: S91.309S Narrative [facility] - 04/25/2023 3:04 PM CDT Surgical Description: Wound Left Foot Vadim Marie DPM LAB - MICROBIOLOGY O RDERABLES Performing Organization Address [facility] de Phone Number [facility] [address] [place] [address], [facility] [phone] * CULTURE ANAEROBE (04/22/2023 9:14 AM CDT) Culture No anaerobic organisms isolated CHANELLE 04/27/2023 9:30 AM CDT [facility] Microbiology ENTIRE FOOT / Unknown 04/22/2023 9:14 AM CDT 04/22/2023 10:20 AM CDT Comment:Pre-op diagnosis: S91.309S Narrative [facility] - 04/27/2023 9:30 AM CDT Surgical Description: Wound Left Foot Vadim Marie DPM LAB - MICROBIOLOGY O RDERABLES Performing Organization Address [facility] de Phone Number [facility] [address] [place] [address], [facility] [phone] * FL EDWIN SURGERY (02/25/2023 4:36 PM CDT) Only the most recent of3 resultswithin the time period is included. Narrative [facility] - 02/25/2023 4:36 PM CDT For details of this study, please see the providers note. Vadim Marie DPM FLUOROSCOPY ORDERABL ES Performing Organization Address City/[facility] Co de Phone Number [facility] [address] [address] * (ABNORMAL) CULTURE HARDWARE (02/25/2023 2:44 PM CDT) Only the most recent of3 resultswithin the time period is included. Culture Growth of Courtney albicans(A ) CHANELLE 03/08/2023 9:59 AM CDT [facility] Comment: Referred to [email or web address] for susceptibility Referred to [email or web address] [address] [place] [address] Microbiology DEVICE / Unknown 02/25/2023 2:44 PM CDT 02/25/2023 3:16 PM CDT Narrative [facility] - 03/08/2023 9:59 AM CDT Surgical Description: Anterior Screw Vadim Salazar [facility] - MICROBIOLOGY O RDERABLES [facility] [address] [place], [place] [address], [facility] [phone] * SUSCEPTIBILITY FUNGUS/YEAST (02/25/2023 2:44 PM CDT) Prelim Report SEE NOTE 03/06/2023 5:15 PM CDT [facility] ([facility]) Comment: Specimen received and in progress. YSTMIC Anidulafungin <=0.016 Suscept Micafungin 0.016 Suscept Caspofungin 0.06 Suscept 5-Fluorocytosine <=0.06 None Posaconazole 0.016 None Voriconazole <=0.008 Suscept Itraconazole <=0.016 None Fluconazole 0.25 Suscept Amphotericin B 0.5 None Performed by [email or web address], [address] [place], [place] [id number] [email or web address], Sami Booker MD, PHD, Lab. Director Final Report SEE NOTE 03/06/2023 5:15 PM CDT [facility] ([facility]) Comment: Courtney albicans Organism identified by client YSTMIC Anidulafungin <=0.016 Suscept Micafungin 0.016 Suscept Caspofungin 0.06 Suscept 5-Fluorocytosine <=0.06 None Posaconazole 0.016 None Voriconazole <=0.008 Suscept Itraconazole <=0.016 None Fluconazole 0.25 Suscept Amphotericin B 0.5 None Performed by [email or web address], [address] [place] [address] [email or web address], Sami Booker MD, PHD, Lab. Director Microbiology DEVICE / Unknown 02/25/2023 2:44 PM CDT 02/25/2023 3:16 PM CDT Narrative [facility] ([facility]) - 03/06/2023 5:15 PM CDT CHANELLE=Minimum Inhibitory Concentration MEC=Minimum Effective Concentration CHANELLE=Minimum Inhibitory Concentration MEC=Minimum Effective Concentration CHANELLE=Minimum Inhibitory Concentration MEC=Minimum Effective Concentration CHANELLE=Minimum Inhibitory Concentration MEC=Minimum Effective Concentration Vadim MCMILLANM LAB - MICROBIOLOGY O RDERABLES [facility] ([facility]) [address] [place] [address], [facility] * CARDIAC RHYTHM STRIP ORDER (06/21/2022 10:10 PM CDT) Only the most recent of2 resultswithin the time period is included. Narrative 06/21/2022 10:10 PM CDT Ordered by an unspecified provider. Scanned Document CARDIAC SERVICES ORD ERABLES * Peripheral Nerve Block (06/19/2022 7:26 AM CDT) Narrative Quinn Perez MD - 06/19/2022 7:26 AM CDT Quinn Perez MD 06/19/2022 10:19 AM Peripheral Nerve Block Procedure: Peripheral Nerve Block Patient Location: PACU Preprocedure Section: Indications: at surgeon's request and postop pain management. Pre-anesthetic Checklist: Patient identified, IV Checked, Site examined and clear, Risks and benefits discussed, Surgical consent verified, Monitors and equipment, Time-out performed, Informed consent obtained, Pre-op evaluation done, Questions answered/anesthesia questions answered, Allergies reviewed and Removal hand/wrist jewelry Monitors: BP, Pulse Ox and EKG. Patient Condition: sedated, meaningful contact maintained throughout procedure Patient Position: right lateral decubitus Patient Sedated? Yes Sedation Type: mild Sedation Agents: fentaNYL (PF) (SUBLIMAZE) injection, 50 mcg midazolam (VERSED) injection, 2 mg Procedure Section Laterality: left Block Performed: popliteal Prep: Chloraprep Strerile Field: gloves, mask, hat/cap and sterile ultrasound sleeve Skin localized with: lidocaine (XYLOCAINE) 1 % injection, 4 mL Needle Type: nerve stimulator and Echogenic insultaed Needle Gauge: 20 Needle Length: 90 mm Needle Depth: 2 cm Nerve Stimulator? Yes Ultrasound Guided? Yes Technique: in plane Visualization: Preliminary scan performed, Important anatomical structures identified, Needle tip visualized throughout the procedure, Target identified, No intraneural or intravascular puncture occurred, Ultrasound image in chart, Local visualized surrounding nerve on ultrasound and Hydrodissection utilized Injection was made incrementally with constant monitoring and aspirations every 5 mL's Injection Assessment: Slow fractionated injection Block Agents or Additives used? Yes Block agents used: ropivacaine (NAROPIN) 5 MG/ML (0.5%) injection, 40 mL Procedure Tolerance: tolerated well and no immediate complications Procedure Start Time: 06/19/2022 7:19 AM. Procedure End Time: 06/19/2022 7:26 AM. Procedure Total Time: 7 minutes. Staff Section Anesthesia Provider: Quinn Perez MD, Performed the procedure Sarthak Becerra DO GENERAL ANESTHESIA ORDERABLES * PAIN MANAGEMENT PROCEDURE TIME (04/25/2013 1:25 PM CDT) Anatomical Region Laterality Modality X-Ray Angiograph y Narrative 04/25/2013 5:11 PM CDT Lionel Centeno MD 04/25/2013 5:11 PM Left L3,L4 Transforaminal Selective Nerve Root Injection Bob Millan [id number] 04/25/2013 Allergies Allergen Reactions Pcn (Penicillins) Procedure: Left L3,L4 Transforaminal Selective Nerve Root Steroid Injection Under Fluoroscopy Indication for Procedure: Radicular pain in the lower extremity/Lumbar Lateral recess stenosis/Chemical radiculitis. Informed Consent: After the patient, Bob Millan, was informed of the risks and benefits of the procedure and all questions were answered, the consent was signed. Prep:Patient identified, proper procedure and site verified, marked by Dr. Roger. In the prone position, left L3,L4 pedicles, and transverse processes were identified under fluoroscopy and marked on the patient's skin. The skin was prepped in a routine sterile fashion using chloroprep. Under fluoroscopy, a 25 gauge, 3 1/2 inch spinal needle was slowly inserted towards the right L3 foramen after 1 % lidocaine MPF was used to anesthetize the skin , subcutaneous tissue and the muscle overlying the area.Once the tip of the needle was in proper position, 0.5ml of Omnipaque was slowly injected to outline the selective nerve root pattern. Symptoms were reproduced in the nerve root distribution. 0.5 ml of Depomedrol 80 mg per ml and 3.0 ml of normal saline (preservative free) were injected in a slow, incremental fashion after aspiration revealed no blood or CSF return. The needle was removed, the skin was cleaned, and ensured no bleeding was noted. The procedure was repeated at the left L4 nerve root level. Total Lidocaine : 4.0ml Total Depomedrol : 80mg Total Omnipaque : 1ml The patient tolerated the procedure well without complications. Vital signs stable. Injection site clean, dry, and intact. Post procedure instructions were given to the patient and follow up appointment was confirmed. The patient was discharged with information on how to reach the clinic at any time for questions or concerns. Patient ambulatory, denies complaints, DC to home. Procedure codes: 30848/70113 Pre VAS 9/10 Post VAS 7/10 Lionel Centeno MD Procedure Note Lionel Ly MD - 04/25/2013 5:07 PM CDT Left L3,L4 Transforaminal Selective Nerve Root Injection Bob Millan [id number] 04/25/2013 Allergies Allergen Reactions Pcn (Penicillins) Procedure: Left L3,L4 Transforaminal Selective Nerve Root SteroidInjection Under Fluoroscopy Indication for Procedure: Radicular pain in the lower extremity/LumbarLateral recess stenosis/Chemical radiculitis. Informed Consent: After the patient, Bob Millan, was informed of therisks and benefits of the procedure and all questions were answered, theconsent was signed. Prep:Patient identified, proper procedure and site verified, marked by . In the prone position, left L3,L4 pedicles, and transverseprocesses were identified under fluoroscopy and marked on the patient'sskin. The skin was prepped in a routine sterile fashion usingchloroprep. Under fluoroscopy, a 25 gauge, 3 1/2 inch spinal needle was slowlyinserted towards the right L3 foramen after 1 % lidocaine MPF was used toanesthetize the skin , subcutaneous tissue and the muscle overlying thearea.Once the tip of the needle was in proper position, 0.5ml of Omnipaquewas slowly injected to outline the selective nerve root pattern. Symptomswere reproduced in the nerve root distribution. 0.5 ml of Depomedrol 80 mgper ml and 3.0 ml of normal saline (preservative free) were injected in aslow, incremental fashion after aspiration revealed no blood or CSFreturn. The needle was removed, the skin was cleaned, and ensured nobleeding was noted. The procedure was repeated at the left L4 nerve root level. Total Lidocaine : 4.0ml Total Depomedrol : 80mg Total Omnipaque : 1ml The patient tolerated the procedure well without complications. Vitalsigns stable. Injection site clean, dry, and intact. Post procedureinstructions were given to the patient and follow up appointment wasconfirmed. The patient was discharged with information on how to reach theclinic at any time for questions or concerns. Patient ambulatory, deniescomplaints, DC to home. Procedure codes: 22887/02818 Pre VAS 9/10 Post VAS 03/23 Lionel Centeno MD Lionel Faith MD DIAGNOSTIC IMAGING O RDERABLES Care Teams Small Products Ii Assembler Relationship Specialty Start Date End Date Dolly Walden MD [address] [place] [id number] PCP - General Internal Medicine 06/19/22 [place] [id number] [place] [address] Orthopedic Surgery 01/31/13 [place] [id number] [place] [address] Orthopedic Surgery 03/14/13 Keisha Boone, [employer] [facility] [address] [id number] Nurse Practitioner 04/22/23
[2024-11-02 06:52] VITALS: BP 146/87; PULSE 94; TEMP 36.4; O2SAT 97; BMI 40.0
[2024-11-02] MEDS: LACTATED RINGERS 1,000 ML 150 ML IV CONT (06:55)
[2024-11-02 07:11] LABS: Glucose Point of Care 237 mg/dl (65-105)
--- NOTE | 2024-11-02 07:19 | P.PNAN_ITS ---
Anes - Initial Pre Proc Eval Procedure: Operation Date: 11/02/24 08:00 Proposed Procedures p Colonoscopy - Michael Beal MD Date/Time: 11/02/24 07:19 Surgeon: Michael Beal MD Pre Op Diagnosis: hx of colon polyps Patient Data Age: 68 Gender: M Height: 1.83 m Weight: 133.9 kg Last Vital Signs Temp 97.6 F 11/02/24 06:52 Pulse 94 11/02/24 06:52 BP 146/87 H 11/02/24 06:52 Pulse Ox 97 11/02/24 06:52 O2 Del Method Room Air 11/02/24 06:52 Allergies Allergy/AdvReac Type Severity Reaction Status Date / Time Penicillins Allergy Mild Swelling Verified 11/02/24 06:50 Home Medications ?Medication ?Instructions ?Recorded ?Confirmed ?Type aspirin 81 mg tablet,delayed 81 mg PO DAILY 08/08/19 11/02/24 History release (Adult Low Dose Aspirin) metformin 500 mg tablet,extended 1,000 mg PO BID 08/08/19 11/02/24 History release 24 hr multivitamin,km-enrh-vnwywipu 1 tablet PO DAILY 08/08/19 11/02/24 History (Complete Multivitamin tablet) omega 9-ept-szn-fish oil 1,000 mg 1 cap PO BID 08/08/19 11/02/24 History (120 mg-180 mg) capsule (Fish Oil) pantoprazole 40 mg tablet,delayed 40 mg PO DAILY 08/08/19 11/02/24 History release rosuvastatin 10 mg tablet 40 mg PO HS 08/08/19 11/02/24 History vitamin E 670 mg (1,000 unit) 1,000 unit PO DAILY 08/08/19 11/02/24 History capsule cholecalciferol (vitamin D3) 25 1,000 unit PO BID 10/14/24 11/02/24 History mcg (1,000 unit) capsule glimepiride 1 mg tablet 1 mg PO DAILY 10/14/24 11/02/24 History mecobalamin (vitamin B12) 1,000 1,000 mcg PO EVERY OTHER DAY 10/14/24 11/02/24 History mcg chewable tablet (B12 Active) meloxicam 15 mg tablet 15 mg PO DAILY 10/14/24 11/02/24 History Laboratory Tests 11/02/24 07:07 POC Capillary Glucose 237 H mg/dl (65-105) Patient hx anesthesia problems: post op nausea/vomiting Family hx anesthesia problems: none Results Review: All pre-operative results and documents have been reviewed as part of the pre- operative evaluation. [facility] Past Medical History Medical History Adenomatous colon polyp Morbid obesity Diabetes HOWARD (obstructive sleep apnea) Social History Social History Smoking status: Never smoker Alcohol intake: never Substance use: never Substance use type: does not use Living arrangements: with family Spiritual care concerns: No Anes - Eval Final PreProcedure Day of Procedure 11/02/24 07:19 Patient weight: morbidly obese Lungs: normal air movement Airway: Mallampati scale class II Neurological: alert and oriented Last oral intake: >/= 8 hours ASA classification: III Emergent: no Anesthetic plan: proceed Anesthesia type and monitoring: general GIVS and standard monitoring Results Review: All pre-operative results and documents have been reviewed as part of the pre- operative evaluation. HTN, hyperlipidemia, HOWARD but no CPAP, DM fsbs 237. Informed Consent: The patient's anesthetic plan and its attendant risks and benefits were discussed with the patient/family/POA. Questions were solicited and answers provided to the satisfaction of the patient/family/POA.
--- NOTE | 2024-11-02 08:08 | PM.HPGS ---
History of Present Illness History of Present Illness Consent: Risks, benefits, and alternatives have been discussed and questions answered. Patient agrees to proceed with procedure. Chief complaint: hx of colon polyps Narrative: Bob Godoy is a 68 year old male with colon polyp in 2019 Review of Systems Review of Systems: All systems reviewed & are unremarkable except as noted in HPI and below PMFSH Past Medical History Medical History Adenomatous colon polyp Morbid obesity Diabetes HOWARD (obstructive sleep apnea) Social History Social History Smoking status: Never smoker Alcohol intake: never Substance use: never Substance use type: does not use Living arrangements: with family Spiritual care concerns: No Meds Home Medications and Allergies Home Medications ?Medication ?Instructions ?Recorded ?Confirmed ?Type aspirin 81 mg tablet,delayed 81 mg PO DAILY 08/08/19 11/02/24 History release (Adult Low Dose Aspirin) metformin 500 mg tablet,extended 1,000 mg PO BID 08/08/19 11/02/24 History release 24 hr multivitamin,sp-gwjx-sbywlebq 1 tablet PO DAILY 08/08/19 11/02/24 History (Complete Multivitamin tablet) omega 5-clf-upd-fish oil 1,000 mg 1 cap PO BID 08/08/19 11/02/24 History (120 mg-180 mg) capsule (Fish Oil) pantoprazole 40 mg tablet,delayed 40 mg PO DAILY 08/08/19 11/02/24 History release rosuvastatin 10 mg tablet 40 mg PO HS 08/08/19 11/02/24 History vitamin E 670 mg (1,000 unit) 1,000 unit PO DAILY 08/08/19 11/02/24 History capsule cholecalciferol (vitamin D3) 25 1,000 unit PO BID 10/14/24 11/02/24 History mcg (1,000 unit) capsule glimepiride 1 mg tablet 1 mg PO DAILY 10/14/24 11/02/24 History mecobalamin (vitamin B12) 1,000 1,000 mcg PO EVERY OTHER DAY 10/14/24 11/02/24 History mcg chewable tablet (B12 Active) meloxicam 15 mg tablet 15 mg PO DAILY 10/14/24 11/02/24 History Allergies Allergy/AdvReac Type Severity Reaction Status Date / Time Penicillins Allergy Mild Swelling Verified 11/02/24 06:50 Vital Signs Vital Signs - 24 hr 11/02/24 06:52 Temperature 97.6 F Pulse Rate 94 Blood Pressure 146/87 H Pulse Oximetry 97 Oxygen Delivery Room Air Exam Const: General: comfortable and no acute distress HENMT: Face/Nose/Sinus: Normal nares present Eyes: General: appearance normal, both eyes and all related structures Neck: Neck: no JVD Resp: Auscultation: clear to auscultation bilaterally Cardio: Rate: regular rate Rhythm: regular rhythm GI: Inspection: non-distended GI Palp: Yes Soft to palpation Skin: General skin exam: normal color Neuro: Speech: normal speech Extrem: General: normal to inspection Psych: Mental Status: mental status grossly normal Assessment and Plan Assessment and plan (1) Adenomatous colon polyp: Qualifiers: Colon location: unspecified part of colon Qualified Code(s): D12.6 - Benign neoplasm of colon, unspecified Code(s): D12.6 - Benign neoplasm of colon, unspecified Status: Acute Assessment and Plan: colonoscopy
[2024-11-02 08:27] VITALS: BP 93/56; PULSE 75; RESP 14; O2SAT 99
[2024-11-02 08:36] LABS: Glucose Point of Care 209 mg/dl (65-105)
[2024-11-02 08:37] VITALS: BP 96/53; PULSE 69; RESP 17; O2SAT 99
[2024-11-02 08:47] VITALS: BP 98/62; PULSE 65; RESP 19; O2SAT 98
== END 2024-11-02 09:04 | disposition home or self-care (01) ==
PROVIDERS: PCP Internal Medicine; Visit Provider Internal Medicine Gastroenterology
PROC: 0DJD8ZZ Inspection of Lower Intestinal Tract, Via Natural or Artificial Opening Endoscopic (ICD-10-PCS; CPT 45378; principal; 2024-11-02 08:00)
DX: Z12.11 Encounter for screening for malignant neoplasm of colon (principal); K63.5 Polyp of colon; K57.30 Diverticulosis of large intestine without perforation or abscess without bleeding; E11.9 Type 2 diabetes mellitus without complications; G47.33 Obstructive sleep apnea (adult) (pediatric); E66.01 Morbid (severe) obesity due to excess calories; Z68.41 Body mass index [BMI] 40.0-44.9, adult; Z79.82 Long term (current) use of aspirin; Z79.84 Long term (current) use of oral hypoglycemic drugs
CPT/HCPCS: 45385; 82948; 88305; J2003; J2704; J7120